=== PATIENT | female | born 1960 | race Caucasian/White ===

== ENCOUNTER 2018-02-12 20:47 | Emergency (ER) | payer MEDICARE ==
[~2018-02-12] VITALS: Ht 170.2 cm; Wt 137.4 kg
[~2018-02-12 20:47] MED LIST: ACET325 PO; ALBU90OI INH; ASPI81CH PO; ATOR20 PO; C-10001000 M1 PO; CALCIUM CARBONATE PO; CEFD300 PO; CHOL10002; DIVA500ER PO; Esgic Tablet1 EACH PO; HYDR1TAB94 PO; METF500C PO; NITR.4SL SL; ONDA4 PO; OXYB5ER PO; OYSTER SHELL C1 EAC3 PO; PRAZ2 PO; Pyridium200 MG PO; ROXICODONE5 MG PO; SERT100 PO; Synthroid125 MCG; TAMS.4ER PO
[2018-02-12 21:34] LABS: BASOPHILS ABSOLUTE AUTO 0.06 K/mm3 (0.00-0.23); BASOPHILS PERCENT AUTO 1 % (0-2); EOSINOPHILS ABSOLUTE AUTO 0.16 K/mm3 (0.00-0.68); EOSINOPHILS PERCENT AUTO 2 % (0-6); Hematocrit 38.3 % (33.0-51.0); Hemoglobin 12.9 g/dL (11.5-16.0); IMMATURE GRAN ABSOLUTE AUTO 0.02 K/mm3 (0.00-0.10); IMMATURE GRAN PERCENT AUTO 0 % (0-1); LYMPHOCYTES ABSOLUTE AUTO 3.16 K/mm3 (0.84-5.20); LYMPHOCYTES PERCENT AUTO 35 % (21-46); MONOCYTES ABSOLUTE AUTO 0.61 K/mm3 (0.16-1.47); MONOCYTES PERCENT AUTO 7 % (4-13); Mean Corpuscular HGB 31.9 pg (26.0-34.0); Mean Corpuscular HGB Conc 33.7 g/dL (31.5-36.5); Mean Corpuscular Volume 95 fL (80-100); Mean Platelet Volume 9.9 fL (9.1-12.4); NEUTROPHILS ABSOLUTE AUTO 5.07 K/mm3 (1.96-9.15); NEUTROPHILS PERCENT AUTO 56 % (41-73); Platelet Count 238 K/mm3 (150-400); RDW Coefficient Variation 13.2 % (11.7-14.2); RDW Standard Deviation 45.5 fL (35.1-46.3); Red Blood Cell Count 4.04 M/mm3 (3.80-5.20); White Blood Cell Count 9.08 K/mm3 (4.00-11.30)
[2018-02-12 21:54] LABS: Alanine Aminotransfer (ALT/SGP 21 U/L (12-78); Albumin, Blood 3.4 g/dL (3.4-5.0); Albumin/Globulin Ratio 0.8 (0.8-1.8); Alk Phos 97 U/L (50-136); Anion Gap 7 mmol/L (6-16); Aspartate Aminotrans (AST/SGOT 13 U/L (12-37); Bilirubin, Total 0.3 mg/dL (0.1-1.0); Blood Urea Nitrogen 18 mg/dL (8-24); Bun/Creatinine Ratio 26.8 (12.0-20.0); CO2, Blood 29 mmol/L (21-32); Calcium, Blood 9.1 mg/dL (8.5-10.1); Chloride, Blood 103 mmol/L (98-108); Creatinine, Blood 0.67 mg/dL (0.40-1.00); Globulin, Blood 4.1 g/dL (2.2-4.0); Glomerular Filtration Rate >60 (60-); Glucose, Blood 104 mg/dL (70-99); Potassium, Blood 3.8 mmol/L (3.5-5.5); Sodium, Blood 139 mmol/L (136-145); Total Protein, Blood 7.5 g/dL (6.4-8.2); Troponin I <0.015 ng/mL (0.000-0.040)
== END 2018-02-13 00:29 | disposition home or self-care (01) ==
LOC: ER 20:47
PROVIDERS: Emergency Medicine
DX: R07.9 Chest pain, unspecified (principal); I11.0 Hypertensive heart disease with heart failure; I50.9 Heart failure, unspecified; E78.5 Hyperlipidemia, unspecified; I25.2 Old myocardial infarction; F31.9 Bipolar disorder, unspecified; E11.9 Type 2 diabetes mellitus without complications; E03.9 Hypothyroidism, unspecified; Z91.048 Other nonmedicinal substance allergy status; Z88.8 Allergy status to other drugs, medicaments and biological substances; Z88.1 Allergy status to other antibiotic agents; Z79.899 Other long term (current) drug therapy; Z79.82 Long term (current) use of aspirin; Z79.84 Long term (current) use of oral hypoglycemic drugs; Z87.891 Personal history of nicotine dependence
CPT/HCPCS: 36415; 71046; 80053; 84484; 85025; 93005; 93010; 99285-25

== ENCOUNTER 2018-02-15 18:34 | Emergency (ER) | payer MEDICARE ==
[~2018-02-15] VITALS: Ht 170.2 cm; Wt 137.4 kg
[2018-02-15] MEDS ORDERED: Roxicodone5 MG PO (18:58)
== END 2018-02-15 19:02 | disposition home or self-care (01) ==
LOC: ER 18:34
DX: M25.561 Pain in right knee (principal); I11.0 Hypertensive heart disease with heart failure; I50.9 Heart failure, unspecified; E78.5 Hyperlipidemia, unspecified; E03.9 Hypothyroidism, unspecified; F31.9 Bipolar disorder, unspecified; E11.9 Type 2 diabetes mellitus without complications; Z91.048 Other nonmedicinal substance allergy status; Z88.0 Allergy status to penicillin; Z88.8 Allergy status to other drugs, medicaments and biological substances; Z79.899 Other long term (current) drug therapy; Z79.82 Long term (current) use of aspirin; Z79.84 Long term (current) use of oral hypoglycemic drugs; Z87.891 Personal history of nicotine dependence
CPT/HCPCS: 99282

== ENCOUNTER 2018-02-27 13:24 | Emergency (ER) | payer MEDICARE ==
[~2018-02-27] VITALS: Ht 170.2 cm; Wt 136.1 kg
[~2018-02-27 13:24] MED LIST changes: +Roxicodone5 MG PO
== END 2018-02-27 16:55 | disposition home or self-care (01) ==
LOC: ER 13:24
DX: R51 Headache (principal); I25.2 Old myocardial infarction; E78.5 Hyperlipidemia, unspecified; E11.9 Type 2 diabetes mellitus without complications; E03.9 Hypothyroidism, unspecified; I10 Essential (primary) hypertension; F31.9 Bipolar disorder, unspecified; G43.909 Migraine, unspecified, not intractable, without status migrainosus; Z91.048 Other nonmedicinal substance allergy status; Z88.0 Allergy status to penicillin; Z88.8 Allergy status to other drugs, medicaments and biological substances; Z79.899 Other long term (current) drug therapy; Z79.82 Long term (current) use of aspirin; Z79.84 Long term (current) use of oral hypoglycemic drugs; Z87.891 Personal history of nicotine dependence
CPT/HCPCS: 96361; 96374; 96375; 99283-25; J1200; J1885; J2765; J7120

== ENCOUNTER 2018-03-03 21:10 | Emergency (ER) | payer MEDICARE ==
[~2018-03-03] VITALS: Ht 170.2 cm; Wt 137.4 kg
== END 2018-03-03 22:03 | disposition home or self-care (01) ==
LOC: ER 21:10
DX: G43.909 Migraine, unspecified, not intractable, without status migrainosus (principal); Z88.0 Allergy status to penicillin; Z88.8 Allergy status to other drugs, medicaments and biological substances; Z91.048 Other nonmedicinal substance allergy status; Z79.899 Other long term (current) drug therapy; Z79.82 Long term (current) use of aspirin; Z79.84 Long term (current) use of oral hypoglycemic drugs; I25.2 Old myocardial infarction; E78.5 Hyperlipidemia, unspecified; E11.9 Type 2 diabetes mellitus without complications; E03.9 Hypothyroidism, unspecified; I10 Essential (primary) hypertension; F31.9 Bipolar disorder, unspecified; Z87.891 Personal history of nicotine dependence
CPT/HCPCS: 96372; 99283-25; J1200; J1885; J2765

== ENCOUNTER 2018-03-06 14:53 | Emergency (ER) | payer MEDICARE ==
[~2018-03-06] VITALS: Ht 170.2 cm; Wt 137.4 kg
== END 2018-03-06 17:36 | disposition home or self-care (01) ==
LOC: ER 14:53
DX: G43.909 Migraine, unspecified, not intractable, without status migrainosus (principal); Z91.048 Other nonmedicinal substance allergy status; Z88.0 Allergy status to penicillin; Z88.8 Allergy status to other drugs, medicaments and biological substances; Z79.899 Other long term (current) drug therapy; Z79.82 Long term (current) use of aspirin; Z79.4 Long term (current) use of insulin; E78.5 Hyperlipidemia, unspecified; I25.2 Old myocardial infarction; E11.9 Type 2 diabetes mellitus without complications; F31.9 Bipolar disorder, unspecified; Z87.891 Personal history of nicotine dependence
CPT/HCPCS: 99283; Q0163

== ENCOUNTER 2018-03-09 21:15 | Emergency (ER) | payer MEDICARE ==
[~2018-03-09] VITALS: Ht 170.2 cm; Wt 135.2 kg
[2018-03-11] MEDS ORDERED: Esgic Tablet1 EACH PO (18:01)
== END 2018-03-10 01:36 | disposition home or self-care (01) ==
LOC: ER 21:15
DX: G43.909 Migraine, unspecified, not intractable, without status migrainosus (principal); Z91.048 Other nonmedicinal substance allergy status; Z88.0 Allergy status to penicillin; Z88.8 Allergy status to other drugs, medicaments and biological substances; Z79.899 Other long term (current) drug therapy; Z79.82 Long term (current) use of aspirin; I25.2 Old myocardial infarction; E78.5 Hyperlipidemia, unspecified; E11.9 Type 2 diabetes mellitus without complications; E03.9 Hypothyroidism, unspecified; I10 Essential (primary) hypertension; F31.9 Bipolar disorder, unspecified; Z87.891 Personal history of nicotine dependence
CPT/HCPCS: 96361; 96374; 96375; 99283-25; J1200; J1885; J2765; J7030

== ENCOUNTER 2018-03-11 16:20 | Emergency (ER) | payer MEDICARE ==
[~2018-03-11] VITALS: Ht 170.2 cm; Wt 134.7 kg
[2018-03-11] MEDS ORDERED: Esgic Tablet1 EACH PO (18:01)
== END 2018-03-11 18:09 | disposition home or self-care (01) ==
LOC: ER 16:20
DX: G43.909 Migraine, unspecified, not intractable, without status migrainosus (principal); Z91.048 Other nonmedicinal substance allergy status; Z88.0 Allergy status to penicillin; Z88.8 Allergy status to other drugs, medicaments and biological substances; Z79.899 Other long term (current) drug therapy; Z79.82 Long term (current) use of aspirin; Z79.84 Long term (current) use of oral hypoglycemic drugs; I25.2 Old myocardial infarction; E78.5 Hyperlipidemia, unspecified; E11.9 Type 2 diabetes mellitus without complications; E03.9 Hypothyroidism, unspecified; I10 Essential (primary) hypertension; F31.9 Bipolar disorder, unspecified; Z87.891 Personal history of nicotine dependence
CPT/HCPCS: 70450; 96361; 96374; 96375; 99283-25; J0780; J1200; J1885; J2405; J7030

== ENCOUNTER 2018-03-13 21:16 | Emergency (ER) | payer MEDICARE ==
[~2018-03-13] VITALS: Ht 170.2 cm; Wt 134.7 kg
[2018-03-13 21:59] LABS: BASOPHILS ABSOLUTE AUTO 0.04 K/mm3 (0.00-0.23); BASOPHILS PERCENT AUTO 1 % (0-2); EOSINOPHILS ABSOLUTE AUTO 0.06 K/mm3 (0.00-0.68); EOSINOPHILS PERCENT AUTO 1 % (0-6); Hematocrit 37.4 % (33.0-51.0); Hemoglobin 12.5 g/dL (11.5-16.0); IMMATURE GRAN ABSOLUTE AUTO 0.04 K/mm3 (0.00-0.10); IMMATURE GRAN PERCENT AUTO 1 % (0-1); LYMPHOCYTES ABSOLUTE AUTO 2.85 K/mm3 (0.84-5.20); LYMPHOCYTES PERCENT AUTO 32 % (21-46); MONOCYTES ABSOLUTE AUTO 0.48 K/mm3 (0.16-1.47); MONOCYTES PERCENT AUTO 5 % (4-13); Mean Corpuscular HGB 31.8 pg (26.0-34.0); Mean Corpuscular HGB Conc 33.4 g/dL (31.5-36.5); Mean Corpuscular Volume 95 fL (80-100); Mean Platelet Volume 9.6 fL (9.1-12.4); NEUTROPHILS ABSOLUTE AUTO 5.39 K/mm3 (1.96-9.15); NEUTROPHILS PERCENT AUTO 61 % (41-73); Platelet Count 236 K/mm3 (150-400); RDW Coefficient Variation 13.1 % (11.7-14.2); RDW Standard Deviation 46.2 fL (35.1-46.3); Red Blood Cell Count 3.93 M/mm3 (3.80-5.20); White Blood Cell Count 8.86 K/mm3 (4.00-11.30)
[2018-03-13 22:19] LABS: Alanine Aminotransfer (ALT/SGP 20 U/L (12-78); Albumin, Blood 3.1 g/dL (3.4-5.0); Albumin/Globulin Ratio 0.8 (0.8-1.8); Alk Phos 85 U/L (50-136); Anion Gap 10 mmol/L (6-16); Aspartate Aminotrans (AST/SGOT 11 U/L (12-37); Bilirubin, Total 0.3 mg/dL (0.1-1.0); Blood Urea Nitrogen 23 mg/dL (8-24); Bun/Creatinine Ratio 36.8 (12.0-20.0); CO2, Blood 26 mmol/L (21-32); Calcium, Blood 8.6 mg/dL (8.5-10.1); Chloride, Blood 104 mmol/L (98-108); Creatinine, Blood 0.63 mg/dL (0.40-1.00); Globulin, Blood 3.8 g/dL (2.2-4.0); Glomerular Filtration Rate >60 (60-); Glucose, Blood 140 mg/dL (70-99); Potassium, Blood 3.6 mmol/L (3.5-5.5); Sodium, Blood 140 mmol/L (136-145); Total Protein, Blood 6.9 g/dL (6.4-8.2); Troponin I <0.015 ng/mL (0.000-0.040)
[2018-03-13 22:26] LABS: Source, Urine Clean Catch
[2018-03-13 22:30] LABS: Bilirubin, Urine Neg (Neg); Blood, Urine 2+ (Neg); Glucose Qualitative, Urine Neg (Neg); Ketones, Urine 1+ (Neg); Leukocyte Esterase, Urine 1+ (Neg); Nitrite, Urine Neg (Neg); Protein, Urine 1+ (Neg); Specific Gravity, Urine 1.025 (1.003-1.022); Urobilinogen, Urine 1+ (Normal)
[2018-03-13 22:36] LABS: Appearance, Urine Hazy (Clear); Bacteria Many /hpf; Color, Urine Yellow (P-Yellow); Red Blood Cells, Urine 0-2 /hpf (0-2); Squamous Epithelial Cells Many /hpf (Few)
[2018-03-13 22:37] LABS: Calcium Oxalate Crystals Mod /hpf
[2018-03-13] MEDS ORDERED: Zofran4 MG PO (22:54)
== END 2018-03-13 23:50 | disposition home or self-care (01) ==
LOC: ER 21:16
PROVIDERS: Emergency Medicine
DX: R06.02 Shortness of breath (principal); R11.2 Nausea with vomiting, unspecified; R10.9 Unspecified abdominal pain; T44.6X5A Adverse effect of alpha-adrenoreceptor antagonists, initial encounter; Z91.048 Other nonmedicinal substance allergy status; Z88.0 Allergy status to penicillin; Z88.8 Allergy status to other drugs, medicaments and biological substances; Z79.899 Other long term (current) drug therapy; Z79.82 Long term (current) use of aspirin; Z79.84 Long term (current) use of oral hypoglycemic drugs; I25.2 Old myocardial infarction; E78.5 Hyperlipidemia, unspecified; E11.9 Type 2 diabetes mellitus without complications; E03.9 Hypothyroidism, unspecified; I10 Essential (primary) hypertension; F31.9 Bipolar disorder, unspecified; G43.909 Migraine, unspecified, not intractable, without status migrainosus; Z87.891 Personal history of nicotine dependence
CPT/HCPCS: 80053; 81001; 83690; 84484; 85025; 87077; 87086; 87186; 93005; 93010; 96360; 99284-25; J7030

== ENCOUNTER 2018-03-17 18:46 | Emergency (ER) | payer MEDICARE, OTHER ==
[~2018-03-17] VITALS: Ht 170.2 cm; Wt 179.6 kg
[~2018-03-17 18:46] MED LIST changes: +Zofran4 MG PO
[2018-03-17 19:15] LABS: BASOPHILS ABSOLUTE AUTO 0.06 K/mm3 (0.00-0.23); BASOPHILS PERCENT AUTO 1 % (0-2); EOSINOPHILS ABSOLUTE AUTO 0.08 K/mm3 (0.00-0.68); EOSINOPHILS PERCENT AUTO 1 % (0-6); Hematocrit 43.2 % (33.0-51.0); Hemoglobin 14.3 g/dL (11.5-16.0); IMMATURE GRAN ABSOLUTE AUTO 0.04 K/mm3 (0.00-0.10); IMMATURE GRAN PERCENT AUTO 0 % (0-1); LYMPHOCYTES ABSOLUTE AUTO 3.22 K/mm3 (0.84-5.20); LYMPHOCYTES PERCENT AUTO 29 % (21-46); MONOCYTES PERCENT AUTO 6 % (4-13); Mean Corpuscular HGB 31.4 pg (26.0-34.0); Mean Corpuscular HGB Conc 33.1 g/dL (31.5-36.5); Mean Corpuscular Volume 95 fL (80-100); Mean Platelet Volume 9.8 fL (9.1-12.4); NEUTROPHILS ABSOLUTE AUTO 7.21 K/mm3 (1.96-9.15); NEUTROPHILS PERCENT AUTO 64 % (41-73); Platelet Count 251 K/mm3 (150-400); RDW Coefficient Variation 13.2 % (11.7-14.2); RDW Standard Deviation 45.8 fL (35.1-46.3); Red Blood Cell Count 4.56 M/mm3 (3.80-5.20); White Blood Cell Count 11.31 K/mm3 (4.00-11.30)
[2018-03-17 19:33] LABS: Alanine Aminotransfer (ALT/SGP 19 U/L (12-78); Albumin, Blood 3.4 g/dL (3.4-5.0); Albumin/Globulin Ratio 0.8 (0.8-1.8); Alk Phos 106 U/L (50-136); Anion Gap 6 mmol/L (6-16); Aspartate Aminotrans (AST/SGOT 8 U/L (12-37); Bilirubin, Total 0.5 mg/dL (0.1-1.0); Blood Urea Nitrogen 21 mg/dL (8-24); Bun/Creatinine Ratio 27.1 (12.0-20.0); CO2, Blood 28 mmol/L (21-32); Calcium, Blood 8.8 mg/dL (8.5-10.1); Chloride, Blood 105 mmol/L (98-108); Creatinine, Blood 0.78 mg/dL (0.40-1.00); Globulin, Blood 4.5 g/dL (2.2-4.0); Glomerular Filtration Rate >60 (60-); Glucose, Blood 90 mg/dL (70-99); Potassium, Blood 3.8 mmol/L (3.5-5.5); Sodium, Blood 139 mmol/L (136-145); Total Protein, Blood 7.9 g/dL (6.4-8.2)
[2018-03-17] MEDS ORDERED: OXYC5 PO (21:11)
[2018-03-17 21:18] LABS: Source, Urine Clean Catch
[2018-03-17 21:21] LABS: Bilirubin, Urine Neg (Neg); Blood, Urine 2+ (Neg); Glucose Qualitative, Urine Neg (Neg); Ketones, Urine Neg (Neg); Leukocyte Esterase, Urine 1+ (Neg); Nitrite, Urine Neg (Neg); Protein, Urine Neg (Neg); Specific Gravity, Urine 1.025 (1.003-1.022); Urobilinogen, Urine 1+ (Normal)
[2018-03-17 21:30] LABS: Appearance, Urine Hazy (Clear); Color, Urine Yellow (P-Yellow)
[2018-03-17 21:31] LABS: Bacteria Few /hpf; Red Blood Cells, Urine 0-2 /hpf (0-2); Squamous Epithelial Cells Many /hpf (Few)
== END 2018-03-17 22:24 | disposition home or self-care (01) ==
LOC: ER 18:46
PROVIDERS: Emergency Medicine
DX: R53.1 Weakness (principal); Z91.048 Other nonmedicinal substance allergy status; Z88.0 Allergy status to penicillin; Z88.8 Allergy status to other drugs, medicaments and biological substances; Z79.899 Other long term (current) drug therapy; Z79.82 Long term (current) use of aspirin; Z79.84 Long term (current) use of oral hypoglycemic drugs; E78.5 Hyperlipidemia, unspecified; E11.9 Type 2 diabetes mellitus without complications; E03.9 Hypothyroidism, unspecified; I10 Essential (primary) hypertension; F31.9 Bipolar disorder, unspecified; Z87.891 Personal history of nicotine dependence
CPT/HCPCS: 36415; 80053; 81001; 84484; 85025; 87077; 87086; 87186; 93005; 93010; 96360; 99283-25; J7030

== ENCOUNTER 2018-03-21 21:42 | Emergency (ER) | payer MEDICARE, OTHER ==
[~2018-03-21] VITALS: Ht 170.2 cm; Wt 134.3 kg
[~2018-03-21 21:42] MED LIST changes: +OXYC5 PO
== END 2018-03-22 01:04 | disposition home or self-care (01) ==
LOC: ER 21:42
DX: G43.109 Migraine with aura, not intractable, without status migrainosus (principal); I25.2 Old myocardial infarction; E78.5 Hyperlipidemia, unspecified; E11.9 Type 2 diabetes mellitus without complications; E03.9 Hypothyroidism, unspecified; I10 Essential (primary) hypertension; F31.9 Bipolar disorder, unspecified; Z87.891 Personal history of nicotine dependence; Z79.899 Other long term (current) drug therapy; Z79.84 Long term (current) use of oral hypoglycemic drugs; Z79.82 Long term (current) use of aspirin
CPT/HCPCS: 99284-25; J0780; J1200; J1885; J7030

== ENCOUNTER 2018-03-28 20:41 | Emergency (ER) | payer MEDICARE ==
[~2018-03-28] VITALS: Ht 170.2 cm; Wt 133.8 kg
== END 2018-03-28 22:10 | disposition home or self-care (01) ==
LOC: ER 20:41
DX: G43.109 Migraine with aura, not intractable, without status migrainosus (principal); I10 Essential (primary) hypertension; E11.9 Type 2 diabetes mellitus without complications; E03.9 Hypothyroidism, unspecified; I25.2 Old myocardial infarction; E78.5 Hyperlipidemia, unspecified; F31.9 Bipolar disorder, unspecified; Z91.048 Other nonmedicinal substance allergy status; Z88.1 Allergy status to other antibiotic agents; Z88.8 Allergy status to other drugs, medicaments and biological substances; Z79.899 Other long term (current) drug therapy; Z79.82 Long term (current) use of aspirin; Z79.84 Long term (current) use of oral hypoglycemic drugs; Z87.442 Personal history of urinary calculi; Z87.891 Personal history of nicotine dependence
CPT/HCPCS: 96374; 96375; 99283-25; J0780; J1200; J7030

== ENCOUNTER 2018-04-01 19:42 | Emergency (ER) | payer MEDICARE ==
[~2018-04-01] VITALS: Ht 170.2 cm; Wt 136.5 kg
== END 2018-04-01 21:00 | disposition home or self-care (01) ==
LOC: ER 19:42
DX: M79.662 Pain in left lower leg (principal); Z91.048 Other nonmedicinal substance allergy status; Z88.0 Allergy status to penicillin; Z79.899 Other long term (current) drug therapy; Z79.82 Long term (current) use of aspirin; I25.2 Old myocardial infarction; E78.5 Hyperlipidemia, unspecified; E11.9 Type 2 diabetes mellitus without complications; E03.9 Hypothyroidism, unspecified; I10 Essential (primary) hypertension; F31.9 Bipolar disorder, unspecified; Z87.891 Personal history of nicotine dependence
CPT/HCPCS: 93971; 99283-25

== ENCOUNTER 2018-04-09 22:06 | Emergency (ER) | payer MEDICARE, OTHER ==
[~2018-04-09] VITALS: Ht 170.2 cm; Wt 136.5 kg
== END 2018-04-10 01:00 | disposition home or self-care (01) ==
LOC: ER 22:06
DX: G43.909 Migraine, unspecified, not intractable, without status migrainosus (principal); Z91.048 Other nonmedicinal substance allergy status; Z88.0 Allergy status to penicillin; Z79.899 Other long term (current) drug therapy; Z88.8 Allergy status to other drugs, medicaments and biological substances; Z79.82 Long term (current) use of aspirin; Z79.84 Long term (current) use of oral hypoglycemic drugs; I25.2 Old myocardial infarction; E78.5 Hyperlipidemia, unspecified; E11.9 Type 2 diabetes mellitus without complications; E03.9 Hypothyroidism, unspecified; I10 Essential (primary) hypertension; F31.9 Bipolar disorder, unspecified; Z87.891 Personal history of nicotine dependence
CPT/HCPCS: 96372; 99283-25; J0780; J1100; Q0163

== ENCOUNTER 2018-04-14 21:26 | Emergency (ER) | payer MEDICARE, OTHER ==
[~2018-04-14] VITALS: Ht 170.2 cm; Wt 137.4 kg
[2018-04-14] MEDS ORDERED: ASPI325 PO (21:53)
== END 2018-04-14 23:08 | disposition home or self-care (01) ==
LOC: ER 21:26
DX: G43.909 Migraine, unspecified, not intractable, without status migrainosus (principal); Z91.048 Other nonmedicinal substance allergy status; Z88.0 Allergy status to penicillin; Z88.8 Allergy status to other drugs, medicaments and biological substances; Z79.899 Other long term (current) drug therapy; Z79.84 Long term (current) use of oral hypoglycemic drugs; Z79.82 Long term (current) use of aspirin; E78.5 Hyperlipidemia, unspecified; E11.9 Type 2 diabetes mellitus without complications; E03.9 Hypothyroidism, unspecified; I10 Essential (primary) hypertension; F31.9 Bipolar disorder, unspecified; Z87.891 Personal history of nicotine dependence; I25.2 Old myocardial infarction
CPT/HCPCS: 96374; 96375; 99283-25; J1200; J1885; J2765

== ENCOUNTER 2018-06-23 12:48 | Emergency (ER) | payer MEDICARE ==
[~2018-06-23] VITALS: Ht 170.2 cm; Wt 138.3 kg
[~2018-06-23 12:48] MED LIST changes: +ASPI325 PO
[2018-06-23] MEDS ORDERED: Vibramycin100 MG PO (13:23)
== END 2018-06-23 13:29 | disposition home or self-care (01) ==
LOC: ER 12:48
DX: L73.9 Follicular disorder, unspecified (principal); I25.2 Old myocardial infarction; E11.9 Type 2 diabetes mellitus without complications; E03.9 Hypothyroidism, unspecified; E78.5 Hyperlipidemia, unspecified; F31.9 Bipolar disorder, unspecified; G43.909 Migraine, unspecified, not intractable, without status migrainosus; Z88.1 Allergy status to other antibiotic agents; Z88.8 Allergy status to other drugs, medicaments and biological substances; Z79.82 Long term (current) use of aspirin; Z79.84 Long term (current) use of oral hypoglycemic drugs; Z79.899 Other long term (current) drug therapy; Z87.442 Personal history of urinary calculi; Z87.891 Personal history of nicotine dependence
CPT/HCPCS: 99282

== ENCOUNTER 2018-07-22 22:20 | Emergency (ER) | payer MEDICARE ==
[~2018-07-22] VITALS: Ht 170.2 cm; Wt 138.3 kg
[~2018-07-22 22:20] MED LIST changes: +Vibramycin100 MG PO
[2018-07-22 23:15] LABS: BASOPHILS ABSOLUTE AUTO 0.06 K/mm3 (0.00-0.23); BASOPHILS PERCENT AUTO 1 % (0-2); EOSINOPHILS ABSOLUTE AUTO 0.12 K/mm3 (0.00-0.68); EOSINOPHILS PERCENT AUTO 1 % (0-6); Hematocrit 39.2 % (33.0-51.0); Hemoglobin 13.2 g/dL (11.5-16.0); IMMATURE GRAN ABSOLUTE AUTO 0.02 K/mm3 (0.00-0.10); IMMATURE GRAN PERCENT AUTO 0 % (0-1); LYMPHOCYTES ABSOLUTE AUTO 3.35 K/mm3 (0.84-5.20); LYMPHOCYTES PERCENT AUTO 37 % (21-46); MONOCYTES ABSOLUTE AUTO 0.66 K/mm3 (0.16-1.47); MONOCYTES PERCENT AUTO 7 % (4-13); Mean Corpuscular HGB 31.9 pg (26.0-34.0); Mean Corpuscular HGB Conc 33.7 g/dL (31.5-36.5); Mean Corpuscular Volume 95 fL (80-100); Mean Platelet Volume 9.8 fL (9.1-12.4); NEUTROPHILS ABSOLUTE AUTO 4.95 K/mm3 (1.96-9.15); NEUTROPHILS PERCENT AUTO 54 % (41-73); Platelet Count 242 K/mm3 (150-400); RDW Coefficient Variation 12.5 % (11.7-14.2); RDW Standard Deviation 43.3 fL (35.1-46.3); Red Blood Cell Count 4.14 M/mm3 (3.80-5.20); White Blood Cell Count 9.16 K/mm3 (4.00-11.30)
[2018-07-22 23:34] LABS: Alanine Aminotransfer (ALT/SGP 26 U/L (12-78); Albumin, Blood 3.3 g/dL (3.4-5.0); Albumin/Globulin Ratio 0.8 (0.8-1.8); Alk Phos 99 U/L (50-136); Anion Gap 6 mmol/L (6-16); Aspartate Aminotrans (AST/SGOT 11 U/L (12-37); Bilirubin, Total 0.4 mg/dL (0.1-1.0); Blood Urea Nitrogen 14 mg/dL (8-24); CO2, Blood 27 mmol/L (21-32); Calcium, Blood 8.9 mg/dL (8.5-10.1); Chloride, Blood 108 mmol/L (98-108); Globulin, Blood 3.9 g/dL (2.2-4.0); Glomerular Filtration Rate >60 (60-); Glucose, Blood 104 mg/dL (70-99); Potassium, Blood 3.6 mmol/L (3.5-5.5); Sodium, Blood 141 mmol/L (136-145); Total Protein, Blood 7.2 g/dL (6.4-8.2); Troponin I <0.015 ng/mL (0.000-0.040)
[2018-07-24] MEDS ORDERED: Norco 5-325 Ta1 EACH PO (13:07)
== END 2018-07-23 01:51 | disposition home or self-care (01) ==
LOC: ER 22:20
PROVIDERS: Physician Assistant
DX: R07.2 Precordial pain (principal); R06.00 Dyspnea, unspecified; R42 Dizziness and giddiness; Z91.048 Other nonmedicinal substance allergy status; Z88.0 Allergy status to penicillin; Z88.8 Allergy status to other drugs, medicaments and biological substances; Z79.899 Other long term (current) drug therapy; Z79.84 Long term (current) use of oral hypoglycemic drugs; Z79.82 Long term (current) use of aspirin; E78.5 Hyperlipidemia, unspecified; I25.2 Old myocardial infarction; E11.9 Type 2 diabetes mellitus without complications; E03.9 Hypothyroidism, unspecified; F31.9 Bipolar disorder, unspecified; Z87.891 Personal history of nicotine dependence
CPT/HCPCS: 36415; 71046; 80053; 84484; 85025; 93005; 93010; 99285-25

== ENCOUNTER 2018-07-24 11:11 | Emergency (ER) | payer MEDICARE ==
[~2018-07-24] VITALS: Ht 170.2 cm; Wt 138.3 kg
[2018-07-24] MEDS ORDERED: Norco 5-325 Ta1 EACH PO (13:07)
== END 2018-07-24 13:14 | disposition home or self-care (01) ==
LOC: ER 11:11
DX: S89.91XA Unspecified injury of right lower leg, initial encounter (principal); W18.30XA Fall on same level, unspecified, initial encounter; Z91.048 Other nonmedicinal substance allergy status; Z88.0 Allergy status to penicillin; Z88.8 Allergy status to other drugs, medicaments and biological substances; Z79.899 Other long term (current) drug therapy; Z79.84 Long term (current) use of oral hypoglycemic drugs; Z79.82 Long term (current) use of aspirin; I25.10 Atherosclerotic heart disease of native coronary artery without angina pectoris; E78.5 Hyperlipidemia, unspecified; E11.9 Type 2 diabetes mellitus without complications; E03.9 Hypothyroidism, unspecified; F31.9 Bipolar disorder, unspecified; G43.909 Migraine, unspecified, not intractable, without status migrainosus; I10 Essential (primary) hypertension; Z87.891 Personal history of nicotine dependence
CPT/HCPCS: 29505; 73562-RT; 99283-25

== ENCOUNTER 2018-07-29 20:31 | Emergency (ER) | payer MEDICARE ==
[~2018-07-29] VITALS: Ht 170.2 cm; Wt 138.3 kg
[~2018-07-29 20:31] MED LIST changes: +Norco 5-325 Ta1 EACH PO
== END 2018-07-29 23:40 | disposition home or self-care (01) ==
LOC: ER 20:31
DX: G43.909 Migraine, unspecified, not intractable, without status migrainosus (principal); I25.2 Old myocardial infarction; E78.5 Hyperlipidemia, unspecified; E11.9 Type 2 diabetes mellitus without complications; E03.9 Hypothyroidism, unspecified; I10 Essential (primary) hypertension; F31.9 Bipolar disorder, unspecified; Z87.442 Personal history of urinary calculi; Z87.891 Personal history of nicotine dependence; Z91.09 Other allergy status, other than to drugs and biological substances; Z88.0 Allergy status to penicillin; Z88.8 Allergy status to other drugs, medicaments and biological substances; Z79.899 Other long term (current) drug therapy; Z79.82 Long term (current) use of aspirin; Z79.84 Long term (current) use of oral hypoglycemic drugs
CPT/HCPCS: 96361; 96374; 96375; 99283-25; J0780; J1100; J1200; J1885; J7030

== ENCOUNTER 2018-08-07 22:33 | Emergency (ER) | payer MEDICARE ==
[~2018-08-07] VITALS: Ht 170.2 cm; Wt 140.6 kg
[2018-08-08 00:21] LABS: Source, Urine Clean Catch
[2018-08-08 00:24] LABS: BASOPHILS ABSOLUTE AUTO 0.06 K/mm3 (0.00-0.23); BASOPHILS PERCENT AUTO 1 % (0-2); EOSINOPHILS ABSOLUTE AUTO 0.17 K/mm3 (0.00-0.68); EOSINOPHILS PERCENT AUTO 2 % (0-6); Hematocrit 41.1 % (33.0-51.0); Hemoglobin 13.2 g/dL (11.5-16.0); IMMATURE GRAN ABSOLUTE AUTO 0.07 K/mm3 (0.00-0.10); IMMATURE GRAN PERCENT AUTO 1 % (0-1); LYMPHOCYTES ABSOLUTE AUTO 2.61 K/mm3 (0.84-5.20); LYMPHOCYTES PERCENT AUTO 31 % (21-46); MONOCYTES ABSOLUTE AUTO 0.74 K/mm3 (0.16-1.47); MONOCYTES PERCENT AUTO 9 % (4-13); Mean Corpuscular HGB 31.9 pg (26.0-34.0); Mean Corpuscular HGB Conc 32.1 g/dL (31.5-36.5); Mean Corpuscular Volume 99 fL (80-100); Mean Platelet Volume 10.3 fL (9.1-12.4); NEUTROPHILS ABSOLUTE AUTO 4.66 K/mm3 (1.96-9.15); NEUTROPHILS PERCENT AUTO 56 % (41-73); Platelet Count 253 K/mm3 (150-400); RDW Coefficient Variation 12.9 % (11.7-14.2); RDW Standard Deviation 46.4 fL (35.1-46.3); Red Blood Cell Count 4.14 M/mm3 (3.80-5.20); White Blood Cell Count 8.31 K/mm3 (4.00-11.30)
[2018-08-08 00:25] LABS: Blood, Urine 2+ (Neg); Glucose Qualitative, Urine Neg (Neg); Ketones, Urine 1+ (Neg); Leukocyte Esterase, Urine 2+ (Neg); Nitrite, Urine Pos (Neg); Protein, Urine 1+ (Neg); Specific Gravity, Urine 1.025 (1.003-1.022); Urobilinogen, Urine 2+ (Normal)
[2018-08-08 00:26] LABS: Appearance, Urine Hazy (Clear); Bilirubin, Urine 1+ (Neg); Color, Urine Yellow (P-Yellow)
[2018-08-08 00:33] LABS: Bacteria Many /hpf; Red Blood Cells, Urine 0-2 /hpf (0-2); Squamous Epithelial Cells Many /hpf (Few); White Blood Cells, Urine 50-100 /hpf (0-5)
[2018-08-08 00:42] LABS: Alanine Aminotransfer (ALT/SGP 20 U/L (12-78); Albumin, Blood 3.3 g/dL (3.4-5.0); Albumin/Globulin Ratio 0.8 (0.8-1.8); Alk Phos 92 U/L (50-136); Anion Gap 3 mmol/L (6-16); Aspartate Aminotrans (AST/SGOT 14 U/L (12-37); Bilirubin, Total 0.6 mg/dL (0.1-1.0); Blood Urea Nitrogen 19 mg/dL (8-24); Bun/Creatinine Ratio 26.9 (12.0-20.0); CO2, Blood 32 mmol/L (21-32); Calcium, Blood 8.8 mg/dL (8.5-10.1); Chloride, Blood 108 mmol/L (98-108); Creatinine, Blood 0.71 mg/dL (0.40-1.00); Globulin, Blood 3.9 g/dL (2.2-4.0); Glomerular Filtration Rate >60 (60-); Glucose, Blood 91 mg/dL (70-99); Potassium, Blood 4.1 mmol/L (3.5-5.5); Sodium, Blood 143 mmol/L (136-145); Total Protein, Blood 7.2 g/dL (6.4-8.2)
[2018-08-08 02:05] LABS: Source, Urine Clean Catch
[2018-08-08 02:10] LABS: Blood, Urine 2+ (Neg); Glucose Qualitative, Urine Neg (Neg); Ketones, Urine 1+ (Neg); Leukocyte Esterase, Urine 2+ (Neg); Nitrite, Urine Pos (Neg); Protein, Urine 1+ (Neg); Urobilinogen, Urine 1+ (Normal)
[2018-08-08 02:12] LABS: Appearance, Urine Hazy (Clear); Bilirubin, Urine 1+ (Neg); Color, Urine Amber (P-Yellow)
[2018-08-08 02:20] LABS: Bacteria Many /hpf; Red Blood Cells, Urine 0-2 /hpf (0-2); Squamous Epithelial Cells Many /hpf (Few)
[2018-08-08] MEDS ORDERED: CEFD300 PO (03:56)
== END 2018-08-08 04:40 | disposition home or self-care (01) ==
LOC: ER 22:33
PROVIDERS: Physician Assistant
DX: N12 Tubulo-interstitial nephritis, not specified as acute or chronic (principal); E11.9 Type 2 diabetes mellitus without complications; I11.0 Hypertensive heart disease with heart failure; I50.9 Heart failure, unspecified; E03.9 Hypothyroidism, unspecified; F31.9 Bipolar disorder, unspecified; E78.5 Hyperlipidemia, unspecified; G43.909 Migraine, unspecified, not intractable, without status migrainosus; Z87.891 Personal history of nicotine dependence; Z79.899 Other long term (current) drug therapy; Z79.84 Long term (current) use of oral hypoglycemic drugs; Z79.82 Long term (current) use of aspirin
CPT/HCPCS: 36415; 74176; 80053; 81001; 83690; 85025; 87077; 87086; 87186; 96361; 96365; 96375; 99284-25; J0696; J1885; J7030

== ENCOUNTER 2018-11-06 20:33 | Emergency (ER) | payer MEDICARE ==
[~2018-11-06] VITALS: Ht 170.2 cm; Wt 145.2 kg
== END 2018-11-06 21:43 | disposition home or self-care (01) ==
LOC: ER 20:33
DX: G43.909 Migraine, unspecified, not intractable, without status migrainosus (principal); I25.2 Old myocardial infarction; E78.5 Hyperlipidemia, unspecified; E03.9 Hypothyroidism, unspecified; E11.9 Type 2 diabetes mellitus without complications; I10 Essential (primary) hypertension; F31.9 Bipolar disorder, unspecified; Z87.442 Personal history of urinary calculi; Z87.891 Personal history of nicotine dependence; Z88.1 Allergy status to other antibiotic agents; Z91.048 Other nonmedicinal substance allergy status; Z79.899 Other long term (current) drug therapy; Z79.84 Long term (current) use of oral hypoglycemic drugs; Z79.82 Long term (current) use of aspirin
CPT/HCPCS: 96374; 96375; 99283-25; J0780; J1100; J1200; J1885

== ENCOUNTER 2018-11-12 21:49 | Emergency (ER) | payer MEDICARE ==
[~2018-11-12] VITALS: Ht 170.2 cm; Wt 145.2 kg
[2018-11-12] MEDS ORDERED: IBUP100S (22:19)
== END 2018-11-13 00:33 | disposition home or self-care (01) ==
LOC: ER 21:49
DX: G43.909 Migraine, unspecified, not intractable, without status migrainosus (principal); E11.9 Type 2 diabetes mellitus without complications; I10 Essential (primary) hypertension; F31.9 Bipolar disorder, unspecified; E78.5 Hyperlipidemia, unspecified; E03.9 Hypothyroidism, unspecified; I25.2 Old myocardial infarction; Z87.442 Personal history of urinary calculi; Z87.891 Personal history of nicotine dependence; Z88.1 Allergy status to other antibiotic agents; Z91.048 Other nonmedicinal substance allergy status; Z88.8 Allergy status to other drugs, medicaments and biological substances; Z79.899 Other long term (current) drug therapy; Z79.84 Long term (current) use of oral hypoglycemic drugs; Z79.82 Long term (current) use of aspirin
CPT/HCPCS: 96361; 96374; 96375; 99283-25; J0780; J1100; J1200; J1885; J7120

== ENCOUNTER 2018-11-19 20:08 | Emergency (ER) | payer MEDICARE ==
[~2018-11-19] VITALS: Ht 170.2 cm; Wt 145.2 kg
[~2018-11-19 20:08] MED LIST changes: +IBUP100S
[2018-11-19] MEDS ORDERED: IBUP800 PO (20:54)
[2018-11-19] MEDS ORDERED: Robaxin-750750 MG PO (20:54)
== END 2018-11-19 21:32 | disposition home or self-care (01) ==
LOC: ER 20:08
DX: G89.29 Other chronic pain (principal); M54.5 Low back pain; E11.9 Type 2 diabetes mellitus without complications; I10 Essential (primary) hypertension; I25.2 Old myocardial infarction; E78.5 Hyperlipidemia, unspecified; F31.9 Bipolar disorder, unspecified; Z87.442 Personal history of urinary calculi; Z87.891 Personal history of nicotine dependence; Z88.1 Allergy status to other antibiotic agents; Z91.048 Other nonmedicinal substance allergy status; Z88.8 Allergy status to other drugs, medicaments and biological substances; Z79.899 Other long term (current) drug therapy; Z79.84 Long term (current) use of oral hypoglycemic drugs; Z79.82 Long term (current) use of aspirin
CPT/HCPCS: 96372; 99283-25; J1885

== ENCOUNTER 2018-12-20 12:07 | Emergency (ER) | payer MEDICARE ==
[~2018-12-20] VITALS: Ht 170.2 cm; Wt 156.5 kg
[~2018-12-20 12:07] MED LIST changes: +IBUP800 PO; +Robaxin-750750 MG PO
[2018-12-20] MEDS ORDERED: Inderal80 MG PO (13:14)
[2018-12-20] MEDS ORDERED: Oxybutynin Chlo15 MG PO (13:16)
== END 2018-12-20 13:54 | disposition home or self-care (01) ==
LOC: ER 12:07
DX: G43.909 Migraine, unspecified, not intractable, without status migrainosus (principal); E78.5 Hyperlipidemia, unspecified; E11.9 Type 2 diabetes mellitus without complications; E03.9 Hypothyroidism, unspecified; F31.9 Bipolar disorder, unspecified; I10 Essential (primary) hypertension; I25.2 Old myocardial infarction; Z87.891 Personal history of nicotine dependence; Z91.048 Other nonmedicinal substance allergy status; Z88.0 Allergy status to penicillin; Z88.8 Allergy status to other drugs, medicaments and biological substances; Z79.51 Long term (current) use of inhaled steroids; Z79.899 Other long term (current) drug therapy; Z79.84 Long term (current) use of oral hypoglycemic drugs; Z79.82 Long term (current) use of aspirin
CPT/HCPCS: 96374; 96375; 99283-25; J0780; J1200; J1885

== ENCOUNTER 2019-01-13 22:56 | Emergency (ER) | payer MEDICARE ==
[~2019-01-13] VITALS: Ht 170.2 cm; Wt 154.2 kg
[~2019-01-13 22:56] MED LIST changes: +ASCO500 PO; -ASPI325 PO; +ASPI325EC PO; -C-10001000 M1 PO; +CYCL10 PO; +Inderal80 MG PO; +Oxybutynin Chlo15 MG PO; -Synthroid125 MCG; +Synthroid125 MCG PO; +Voltaren100 GM TOP
== END 2019-01-14 00:33 | disposition home or self-care (01) ==
LOC: ER 22:56
DX: R51 Headache (principal); I25.2 Old myocardial infarction; E11.9 Type 2 diabetes mellitus without complications; I10 Essential (primary) hypertension; E03.9 Hypothyroidism, unspecified; E78.5 Hyperlipidemia, unspecified; F31.9 Bipolar disorder, unspecified; E66.01 Morbid (severe) obesity due to excess calories; Z68.43 Body mass index [BMI] 50.0-59.9, adult; Z87.442 Personal history of urinary calculi; Z87.891 Personal history of nicotine dependence; Z91.048 Other nonmedicinal substance allergy status; Z88.1 Allergy status to other antibiotic agents; Z88.8 Allergy status to other drugs, medicaments and biological substances; Z79.899 Other long term (current) drug therapy; Z79.84 Long term (current) use of oral hypoglycemic drugs; Z79.82 Long term (current) use of aspirin
CPT/HCPCS: 96372; 99283-25; J1100; J1885; J2765; Q0163

== ENCOUNTER 2019-01-20 22:22 | Emergency (ER) | payer MEDICARE ==
[~2019-01-20] VITALS: Ht 170.2 cm; Wt 154.2 kg
[~2019-01-20 22:22] MED LIST changes: -ASCO500 PO; +ASPI325 PO; -ASPI325EC PO; +C-10001000 M1 PO; +Synthroid125 MCG; -Synthroid125 MCG PO
[2019-01-20 23:22] LABS: BASOPHILS ABSOLUTE AUTO 0.05 K/mm3 (0.00-0.23); BASOPHILS PERCENT AUTO 1 % (0-2); EOSINOPHILS ABSOLUTE AUTO 0.07 K/mm3 (0.00-0.68); EOSINOPHILS PERCENT AUTO 1 % (0-6); Hematocrit 41.8 % (33.0-51.0); Hemoglobin 13.9 g/dL (11.5-16.0); IMMATURE GRAN ABSOLUTE AUTO 0.04 K/mm3 (0.00-0.10); IMMATURE GRAN PERCENT AUTO 0 % (0-1); LYMPHOCYTES ABSOLUTE AUTO 1.73 K/mm3 (0.84-5.20); LYMPHOCYTES PERCENT AUTO 17 % (21-46); MONOCYTES ABSOLUTE AUTO 0.49 K/mm3 (0.16-1.47); MONOCYTES PERCENT AUTO 5 % (4-13); Mean Corpuscular HGB 31.7 pg (26.0-34.0); Mean Corpuscular HGB Conc 33.3 g/dL (31.5-36.5); Mean Corpuscular Volume 95 fL (80-100); Mean Platelet Volume 9.1 fL (9.1-12.4); NEUTROPHILS PERCENT AUTO 77 % (41-73); Platelet Count 247 K/mm3 (150-400); RDW Coefficient Variation 12.6 % (11.7-14.2); RDW Standard Deviation 44.2 fL (35.1-46.3); Red Blood Cell Count 4.39 M/mm3 (3.80-5.20); White Blood Cell Count 10.28 K/mm3 (4.00-11.30)
[2019-01-20 23:43] LABS: Alanine Aminotransfer (ALT/SGP 23 U/L (12-78); Albumin, Blood 3.2 g/dL (3.4-5.0); Albumin/Globulin Ratio 0.7 (0.8-1.8); Alk Phos 106 U/L (50-136); Anion Gap 6 mmol/L (6-16); Aspartate Aminotrans (AST/SGOT 13 U/L (12-37); Bilirubin, Total 0.3 mg/dL (0.1-1.0); Blood Urea Nitrogen 23 mg/dL (8-24); CO2, Blood 28 mmol/L (21-32); Calcium, Blood 9.6 mg/dL (8.5-10.1); Chloride, Blood 105 mmol/L (98-108); Creatinine, Blood 0.74 mg/dL (0.40-1.00); Globulin, Blood 4.6 g/dL (2.2-4.0); Glomerular Filtration Rate >60 (60-); Glucose, Blood 121 mg/dL (70-99); Potassium, Blood 4.2 mmol/L (3.5-5.5); Sodium, Blood 139 mmol/L (136-145); Total Protein, Blood 7.8 g/dL (6.4-8.2); Troponin I <0.015 ng/mL (0.000-0.040)
== END 2019-01-21 03:02 | disposition home or self-care (01) ==
LOC: ER 22:22
PROVIDERS: Emergency Medicine
DX: R07.9 Chest pain, unspecified (principal); I25.2 Old myocardial infarction; E11.9 Type 2 diabetes mellitus without complications; E78.5 Hyperlipidemia, unspecified; E03.9 Hypothyroidism, unspecified; I10 Essential (primary) hypertension; F31.9 Bipolar disorder, unspecified; E66.01 Morbid (severe) obesity due to excess calories; Z68.43 Body mass index [BMI] 50.0-59.9, adult; Z87.442 Personal history of urinary calculi; Z87.891 Personal history of nicotine dependence; Z91.048 Other nonmedicinal substance allergy status; Z88.1 Allergy status to other antibiotic agents; Z88.8 Allergy status to other drugs, medicaments and biological substances; Z79.899 Other long term (current) drug therapy; Z79.82 Long term (current) use of aspirin; Z79.84 Long term (current) use of oral hypoglycemic drugs
CPT/HCPCS: 36415; 71046; 80053; 83690; 83880; 84484; 85025; 93005; 93010; 99285-25

== ENCOUNTER 2019-02-06 21:02 | Emergency (ER) | payer MEDICARE ==
[~2019-02-06] VITALS: Ht 170.2 cm; Wt 156.5 kg
[~2019-02-06 21:02] MED LIST changes: +ASCO500 PO; -ASPI325 PO; +ASPI325EC PO; -C-10001000 M1 PO; -Synthroid125 MCG; +Synthroid125 MCG PO
== END 2019-02-06 22:05 | disposition home or self-care (01) ==
LOC: ER 21:02
DX: G43.909 Migraine, unspecified, not intractable, without status migrainosus (principal); I25.2 Old myocardial infarction; I10 Essential (primary) hypertension; E78.5 Hyperlipidemia, unspecified; E11.9 Type 2 diabetes mellitus without complications; Z87.891 Personal history of nicotine dependence
CPT/HCPCS: 36415; 96374; 96375; 99283-25; J0780; J1170; J1200; J1885

== ENCOUNTER 2019-02-13 20:24 | Emergency (ER) | payer MEDICARE ==
[~2019-02-13] VITALS: Ht 170.2 cm; Wt 154.2 kg
[2019-02-13] MEDS ORDERED: HYDR1TAB94 PO (23:14)
== END 2019-02-14 00:31 | disposition home or self-care (01) ==
LOC: ER 20:24
DX: M79.662 Pain in left lower leg (principal); I25.2 Old myocardial infarction; E78.5 Hyperlipidemia, unspecified; E03.9 Hypothyroidism, unspecified; I10 Essential (primary) hypertension; Z86.718 Personal history of other venous thrombosis and embolism; F31.9 Bipolar disorder, unspecified; Z87.442 Personal history of urinary calculi; Z87.891 Personal history of nicotine dependence; Z88.0 Allergy status to penicillin; Z88.2 Allergy status to sulfonamides; Z91.048 Other nonmedicinal substance allergy status; Z79.82 Long term (current) use of aspirin; Z79.51 Long term (current) use of inhaled steroids; Z79.899 Other long term (current) drug therapy
CPT/HCPCS: 93971; 99283-25; A9270

== ENCOUNTER 2019-02-16 09:43 | Day surgery (SDC) | payer MEDICARE ==
[~2019-02-16] VITALS: Ht 170.2 cm; Wt 159.0 kg
--- NOTE | 2019-02-16 10:26 | NUR ---
History, Chart, Medications and Allergies reviewed before start of procedure. Lungs clear T/O to Auscultation. Patient confirms NPO status and agrees with scheduled surgery. Pre-Op teaching done. Pt verbalizes understanding. Patient states colon prep results clear. Patient States Post-Procedure ride home has been arranged.
--- NOTE | 2019-02-16 10:28 | NUR ---
PT GAVE HER GLASSES TO HER
--- NOTE | 2019-02-16 10:38 | NUR ---
02/16/[address] HERE TO PROVIDE ANESTHESIA CARE TODAY, PLEASE SEE DETAILED RECORD. History, Chart, Medications and Allergies reviewed before start of procedure. Patient states colon prep results clear. MONITOR INTACT WITH CONTINUOUS PULSE OXIMETRY AND INTERMITTENT BP. PATIENT CONFIRMS NPO STATUS AND AGREES WITH SCHEDULED PROCEDURE. O2 VIA N/C INTACT THROUGHOUT SEDATION/PROCEDURE VIA NON-REBREATHER PER DR BALTAZAR.
--- NOTE | 2019-02-16 10:56 | NUR ---
PT AWAKE, ALERT, CONVERSING [facility] STAFF. NO C/O PAIN OR DISCOMFORT. UNABLE TO COMPLETE PROCEDURE RELATED TO STOOL IN COLON. MD TO BEDSIDE TO REVIEW NEED FOR RESCHEDULE AND DOUBLE DAY PREP.
--- NOTE | 2019-02-16 11:09 | NUR ---
REVIEWED DISCHARGE INSTRUCTIONS WITH PATIENT AND , BOTH OF WHOM VERBALIZE UNDERSTANDING OF ALL INSTRUCTIONS GIVEN. SIPPING ON PO FLUIDS WITHOUT DIFFICULTY.
--- NOTE | 2019-02-16 11:23 | NUR ---
DRESSED WITH ASSISTANCE BY THIS RN. STEADY ON FEET WHILE DRESSING. IV DC TIP INTACT. DC HOME VIA WC WITH TO DRIVE HER.
== END 2019-02-16 23:52 | disposition home or self-care (01) ==
LOC: ORSCMMR 09:43 → ORD 11:15 → ORSCMMR 11:15
PROVIDERS: Student in an Organized Health Care Education/Training Program
PROC: 0DJD8ZZ Inspection of Lower Intestinal Tract, Via Natural or Artificial Opening Endoscopic (ICD-10-PCS; principal; 2019-02-16 11:15)
DX: Z12.11 Encounter for screening for malignant neoplasm of colon (principal); F31.9 Bipolar disorder, unspecified; J44.9 Chronic obstructive pulmonary disease, unspecified; I21.9 Acute myocardial infarction, unspecified; E11.9 Type 2 diabetes mellitus without complications; E03.9 Hypothyroidism, unspecified; E66.01 Morbid (severe) obesity due to excess calories; Z68.43 Body mass index [BMI] 50.0-59.9, adult; Z79.82 Long term (current) use of aspirin; Z79.84 Long term (current) use of oral hypoglycemic drugs; Z79.899 Other long term (current) drug therapy
CPT/HCPCS: 82947; J2704; J7120

== ENCOUNTER 2019-03-13 10:46 | Day surgery (SDC) | payer MEDICARE ==
--- NOTE | 2019-03-13 11:37 | NUR ---
Patient up to Ambulate independently. Gait steady. History, Chart, Medications and Allergies reviewed before start of procedure.Lungs clear, BUT DECREASED T/O to Auscultation. Patient states colon prep results clear. Patient confirms NPO status and agrees with scheduled surgery.
--- NOTE | 2019-03-13 12:38 | NUR ---
03/13/19 1238 Abel Aguilar History, Chart, Medications and Allergies reviewed before start of procedure.MONITOR INTACT WITH CONTINUOUS PULSE OXIMETRY AND INTERMITTENT BP.3-LEAD EKG REVIEWED WITH PHYSICIAN PRIOR TO START OF PROCEDURE.O2 VIA N/C INTACT THROUGHOUT SEDATION/PROCEDURE. Patient confirms NPO status and agrees with scheduled surgery.See Anesthesia record.
== END 2019-03-13 14:16 | disposition home or self-care (01) ==
LOC: ORSCMMR 10:46 → ORD 12:30 → ORSCMMR 14:16
PROVIDERS: Student in an Organized Health Care Education/Training Program
PROC: 0DBM8ZX Excision of Descending Colon, Via Natural or Artificial Opening Endoscopic, Diagnostic (ICD-10-PCS; principal; 2019-03-13 12:30)
PROC: 0DBP8ZX Excision of Rectum, Via Natural or Artificial Opening Endoscopic, Diagnostic (ICD-10-PCS; principal; 2019-03-13 12:30)
PROC: 0DBL8ZX Excision of Transverse Colon, Via Natural or Artificial Opening Endoscopic, Diagnostic (ICD-10-PCS; principal; 2019-03-13 12:30)
PROC: 0DBK8ZX Excision of Ascending Colon, Via Natural or Artificial Opening Endoscopic, Diagnostic (ICD-10-PCS; principal; 2019-03-13 12:30)
DX: Z12.11 Encounter for screening for malignant neoplasm of colon (principal); D12.3 Benign neoplasm of transverse colon; D12.4 Benign neoplasm of descending colon; K63.5 Polyp of colon; K62.1 Rectal polyp; I25.2 Old myocardial infarction; I25.10 Atherosclerotic heart disease of native coronary artery without angina pectoris; J44.9 Chronic obstructive pulmonary disease, unspecified; G47.33 Obstructive sleep apnea (adult) (pediatric); Z87.891 Personal history of nicotine dependence; E11.9 Type 2 diabetes mellitus without complications; E66.01 Morbid (severe) obesity due to excess calories; Z68.43 Body mass index [BMI] 50.0-59.9, adult; Z79.899 Other long term (current) drug therapy; Z79.82 Long term (current) use of aspirin; F31.9 Bipolar disorder, unspecified
CPT/HCPCS: 82947; 88305; J2704; J7120

== ENCOUNTER 2019-03-13 22:01 | Emergency (ER) | payer MEDICARE ==
[~2019-03-13] VITALS: Ht 170.2 cm; Wt 154.2 kg
[2019-03-13 23:20] LABS: BASOPHILS ABSOLUTE AUTO 0.05 K/mm3 (0.00-0.23); BASOPHILS PERCENT AUTO 1 % (0-2); EOSINOPHILS ABSOLUTE AUTO 0.09 K/mm3 (0.00-0.68); EOSINOPHILS PERCENT AUTO 1 % (0-6); Hematocrit 40.2 % (33.0-51.0); Hemoglobin 13.3 g/dL (11.5-16.0); IMMATURE GRAN ABSOLUTE AUTO 0.02 K/mm3 (0.00-0.10); IMMATURE GRAN PERCENT AUTO 0 % (0-1); LYMPHOCYTES ABSOLUTE AUTO 2.19 K/mm3 (0.84-5.20); LYMPHOCYTES PERCENT AUTO 29 % (21-46); MONOCYTES ABSOLUTE AUTO 0.61 K/mm3 (0.16-1.47); MONOCYTES PERCENT AUTO 8 % (4-13); Mean Corpuscular HGB 31.7 pg (26.0-34.0); Mean Corpuscular HGB Conc 33.1 g/dL (31.5-36.5); Mean Corpuscular Volume 96 fL (80-100); Mean Platelet Volume 9.6 fL (9.1-12.4); NEUTROPHILS ABSOLUTE AUTO 4.54 K/mm3 (1.96-9.15); NEUTROPHILS PERCENT AUTO 61 % (41-73); Platelet Count 238 K/mm3 (150-400); RDW Coefficient Variation 12.8 % (11.7-14.2); Red Blood Cell Count 4.19 M/mm3 (3.80-5.20)
[2019-03-13 23:38] LABS: Alanine Aminotransfer (ALT/SGP 34 U/L (12-78); Albumin, Blood 3.2 g/dL (3.4-5.0); Albumin/Globulin Ratio 0.8 (0.8-1.8); Alk Phos 97 U/L (50-136); Anion Gap 7 mmol/L (6-16); Aspartate Aminotrans (AST/SGOT 17 U/L (12-37); Bilirubin, Total 0.7 mg/dL (0.1-1.0); Blood Urea Nitrogen 11 mg/dL (8-24); Bun/Creatinine Ratio 20.8 (12.0-20.0); CO2, Blood 26 mmol/L (21-32); Chloride, Blood 108 mmol/L (98-108); Creatinine, Blood 0.53 mg/dL (0.40-1.00); Globulin, Blood 3.9 g/dL (2.2-4.0); Glomerular Filtration Rate >60 (60-); Glucose, Blood 105 mg/dL (70-99); Potassium, Blood 3.5 mmol/L (3.5-5.5); Sodium, Blood 141 mmol/L (136-145); Total Protein, Blood 7.1 g/dL (6.4-8.2)
[2019-03-13 23:56] LABS: Source, Urine Clean Catch
[2019-03-14 00:07] LABS: Appearance, Urine Clear (Clear); Bilirubin, Urine Neg (Neg); Blood, Urine 1+ (Neg); Color, Urine Amber (P-Yellow); Glucose Qualitative, Urine Neg (Neg); Ketones, Urine Neg (Neg); Leukocyte Esterase, Urine Neg (Neg); Nitrite, Urine Neg (Neg); Protein, Urine Neg (Neg); Specific Gravity, Urine 1.015 (1.003-1.022); Urobilinogen, Urine 4+ (Normal)
[2019-03-14 00:18] LABS: Bacteria Mod /hpf; Mucus Light (0-Heavy); Red Blood Cells, Urine 0-2 /hpf (0-2); Squamous Epithelial Cells Many /hpf (Few)
== END 2019-03-14 01:36 | disposition home or self-care (01) ==
LOC: ER 22:01
PROVIDERS: Physician Assistant
DX: R10.32 Left lower quadrant pain (principal); Z88.1 Allergy status to other antibiotic agents; Z91.048 Other nonmedicinal substance allergy status; Z88.8 Allergy status to other drugs, medicaments and biological substances; Z79.84 Long term (current) use of oral hypoglycemic drugs; Z79.899 Other long term (current) drug therapy; Z79.82 Long term (current) use of aspirin; I25.2 Old myocardial infarction; F41.9 Anxiety disorder, unspecified; E11.9 Type 2 diabetes mellitus without complications; I10 Essential (primary) hypertension; I49.9 Cardiac arrhythmia, unspecified; Z87.891 Personal history of nicotine dependence
CPT/HCPCS: 36415; 74177; 80053; 81001; 83690; 85025; 87086; 93005; 93010; 96374; 96375; 99284-25; J2270; J2405; Q9967

== ENCOUNTER 2019-03-17 06:55 | Inpatient (IN) | payer MEDICARE ==
[~2019-03-17] VITALS: Ht 170.2 cm; Wt 161.8 kg
[2019-03-17 07:22] LABS: Source, Urine Clean Catch
[2019-03-17 07:31] LABS: Appearance, Urine Clear (Clear); Bilirubin, Urine Neg (Neg); Blood, Urine 1+ (Neg); Color, Urine Yellow (P-Yellow); Glucose Qualitative, Urine Neg (Neg); Ketones, Urine Neg (Neg); Leukocyte Esterase, Urine Neg (Neg); Nitrite, Urine Neg (Neg); Protein, Urine Neg (Neg); Urobilinogen, Urine NORM (Normal)
[2019-03-17 07:40] LABS: Bacteria Not Seen /hpf; Red Blood Cells, Urine 0-2 /hpf (0-2); Squamous Epithelial Cells Mod /hpf (Few); White Blood Cells, Urine 0-2 /hpf (0-5)
[2019-03-17 08:15] LABS: BASOPHILS ABSOLUTE AUTO 0.05 K/mm3 (0.00-0.23); BASOPHILS PERCENT AUTO 1 % (0-2); EOSINOPHILS ABSOLUTE AUTO 0.14 K/mm3 (0.00-0.68); EOSINOPHILS PERCENT AUTO 2 % (0-6); Hematocrit 38.6 % (33.0-51.0); Hemoglobin 12.7 g/dL (11.5-16.0); IMMATURE GRAN ABSOLUTE AUTO 0.03 K/mm3 (0.00-0.10); IMMATURE GRAN PERCENT AUTO 0 % (0-1); LYMPHOCYTES ABSOLUTE AUTO 2.67 K/mm3 (0.84-5.20); LYMPHOCYTES PERCENT AUTO 29 % (21-46); MONOCYTES PERCENT AUTO 5 % (4-13); Mean Corpuscular HGB 31.4 pg (26.0-34.0); Mean Corpuscular HGB Conc 32.9 g/dL (31.5-36.5); Mean Corpuscular Volume 95 fL (80-100); Mean Platelet Volume 9.9 fL (9.1-12.4); NEUTROPHILS ABSOLUTE AUTO 5.85 K/mm3 (1.96-9.15); NEUTROPHILS PERCENT AUTO 63 % (41-73); Platelet Count 244 K/mm3 (150-400); RDW Coefficient Variation 12.9 % (11.7-14.2); RDW Standard Deviation 45.6 fL (35.1-46.3); Red Blood Cell Count 4.05 M/mm3 (3.80-5.20); White Blood Cell Count 9.24 K/mm3 (4.00-11.30)
[2019-03-17 08:22] LABS: Alanine Aminotransfer (ALT/SGP 27 U/L (12-78); Albumin, Blood 3.2 g/dL (3.4-5.0); Albumin/Globulin Ratio 0.8 (0.8-1.8); Alk Phos 87 U/L (50-136); Anion Gap 7 mmol/L (6-16); Aspartate Aminotrans (AST/SGOT 12 U/L (12-37); Bilirubin, Total 0.4 mg/dL (0.1-1.0); Blood Urea Nitrogen 16 mg/dL (8-24); Bun/Creatinine Ratio 26.7 (12.0-20.0); CO2, Blood 25 mmol/L (21-32); Calcium, Blood 9.1 mg/dL (8.5-10.1); Chloride, Blood 107 mmol/L (98-108); Glomerular Filtration Rate >60 (60-); Glucose, Blood 86 mg/dL (70-99); Potassium, Blood 4.1 mmol/L (3.5-5.5); Sodium, Blood 139 mmol/L (136-145); Total Protein, Blood 7.2 g/dL (6.4-8.2)
[2019-03-17 11:11] LABS: Triglycerides 96 mg/dL (30-160)
[2019-03-17] MEDS ORDERED: BUTONI (11:47)
[2019-03-17] MEDS ORDERED: Esgic Tablet1 EACH PO (11:48)
[2019-03-17] MEDS ORDERED: DIVA500EC PO (11:49)
[2019-03-17] MEDS ORDERED: B-121000 MC3 PO (11:49)
--- NOTE | 2019-03-17 11:53 | NUR ---
REPORT RECIEVED FROM DEIRDRE REDMAN. AWAITING ARRIVAL AT THIS TIME
--- NOTE | 2019-03-17 18:13 | NUR ---
SHIFT SUMMARY PT AXO, PLEASANT AND COOPERATIVE WITH CARE. COMPLAINED OF R ARM PAIN, MEDICATED PER EMAR. EGD WITH ABLATION DONE THIS SHIFT, SEE DR MALIK'S NOTE. PHYSICAL THERPY WORKED WITH PATIENT, SEE ASSESSMENT. PT'S SON WAS CONCERNED ABOUT BEING ABLE TO CARE FOR PATIENT AT HOME. HE STATES THAT HE PREFERS PT TO GO TO SNF PRIOR TO GOING HOME AGAIN. PT NEEDS MORE CARE THAN HE CAN PROVIDE AT THIS POINT. NURSE EDUCATED PATIENT'S SON THAT PHYSICAL THERAPY IS RECOMMENDING SNF AT THIS POINT. PT UP WITH 1 ASSIST TO BSC. IV PATENT AND SALINE LOCKED. BED IN LOW POSITION, CALL LIGHT WITHIN REACH.
--- NOTE | 2019-03-17 18:53 | NUR ---
SHIFT SUMMARY PT AXO, PLEASANT AND COOPERATIVE WITH CARE. ADMISSION PROCESS COMPLETE. PT ARRIVED AT 1204 TO ROOM. IV PATENT AND INFUSING. VSS. 94% ON RA. NO ACUTE CHANGES SINCE ARRIVAL. PT COMPLAINED OF MANRIQUE, MEDICATED PER EMAR. UP AD KARYN IN ROOM. BED IN LOW POSITION, CALL LIGHT WITHIN REACH.
--- NOTE | 2019-03-18 03:57 | NUR ---
PT RESTING QUIETLY WITH OCCASIONAL EPISODES OF WAKING TO GO TO BR. RECEIVED ANALGESIC X 1 OF THIS WRITING. IVF INFUSING AT 125 ML/HR PER APR - SEE MAR FOR DETAILS. NPO EXCEPT MEDS WITH SM AMT WATER. TOLERATED WELL. CALL LIGHT IN REACH.
[2019-03-18 05:24] LABS: BASOPHILS ABSOLUTE AUTO 0.04 K/mm3 (0.00-0.23); BASOPHILS PERCENT AUTO 1 % (0-2); EOSINOPHILS ABSOLUTE AUTO 0.11 K/mm3 (0.00-0.68); EOSINOPHILS PERCENT AUTO 2 % (0-6); Hematocrit 35.8 % (33.0-51.0); Hemoglobin 11.6 g/dL (11.5-16.0); IMMATURE GRAN ABSOLUTE AUTO 0.02 K/mm3 (0.00-0.10); IMMATURE GRAN PERCENT AUTO 0 % (0-1); LYMPHOCYTES ABSOLUTE AUTO 2.28 K/mm3 (0.84-5.20); LYMPHOCYTES PERCENT AUTO 45 % (21-46); MONOCYTES ABSOLUTE AUTO 0.29 K/mm3 (0.16-1.47); MONOCYTES PERCENT AUTO 6 % (4-13); Mean Corpuscular HGB 31.4 pg (26.0-34.0); Mean Corpuscular HGB Conc 32.4 g/dL (31.5-36.5); Mean Corpuscular Volume 97 fL (80-100); Mean Platelet Volume 9.9 fL (9.1-12.4); NEUTROPHILS ABSOLUTE AUTO 2.34 K/mm3 (1.96-9.15); NEUTROPHILS PERCENT AUTO 46 % (41-73); Platelet Count 212 K/mm3 (150-400); RDW Coefficient Variation 13.2 % (11.7-14.2); RDW Standard Deviation 46.6 fL (35.1-46.3); White Blood Cell Count 5.08 K/mm3 (4.00-11.30)
[2019-03-18 05:46] LABS: Alanine Aminotransfer (ALT/SGP 25 U/L (12-78); Albumin, Blood 2.7 g/dL (3.4-5.0); Albumin/Globulin Ratio 0.8 (0.8-1.8); Alk Phos 75 U/L (50-136); Anion Gap 6 mmol/L (6-16); Aspartate Aminotrans (AST/SGOT 12 U/L (12-37); Bilirubin, Total 0.6 mg/dL (0.1-1.0); Blood Urea Nitrogen 14 mg/dL (8-24); Bun/Creatinine Ratio 22.9 (12.0-20.0); CO2, Blood 26 mmol/L (21-32); Calcium, Blood 8.4 mg/dL (8.5-10.1); Chloride, Blood 109 mmol/L (98-108); Creatinine, Blood 0.61 mg/dL (0.40-1.00); Globulin, Blood 3.6 g/dL (2.2-4.0); Glomerular Filtration Rate >60 (60-); Glucose, Blood 75 mg/dL (70-99); Potassium, Blood 3.6 mmol/L (3.5-5.5); Sodium, Blood 141 mmol/L (136-145); Total Protein, Blood 6.3 g/dL (6.4-8.2)
--- NOTE | 2019-03-18 14:17 | NUR ---
THIS NURSE CALLED DR ASHER AT 1417 TO NOTIFY HER THAT PT TOLERATED LUNCH WELL AND DENIES PAIN. AT 1325 PT COMPLAINED OF ONE EPISODE OF "BEING LIGHTHEADED". VS MEASURED, STABLE. PT DENIES LIGHTHEADEDNESS AT THIS TIME.
[2019-03-18] MEDS ORDERED: ACET325 PO (14:39)
--- NOTE | 2019-03-18 15:33 | NUR ---
SHIFT SUMMARY PT DISCHARGED TO HOME. PT LEFT ROOM VIA WHEELCHAIR PRIOR TO THIS NOTE. IV DC'D AND BELONGINGS RETURNED. PT EDUCATED ON DISCHARGE INSTRUCTIONS, INSTRUCTED TO FOLLOW UP WITH PCP, PANCREATITIS, MIGRAINE AND DIABETES. PT AGRESS TO FOLLOW UP WITH PCP.
[2019-03-19] MEDS ORDERED: Norco 5-325 Ta1 EACH PO (17:25)
== END 2019-03-18 15:09 | disposition home or self-care (01) | DRG 439 ==
LOC: ER 06:55 → MEDS 10:57 → ER 11:56 → MEDS 12:06
PROVIDERS: Emergency Medicine; Nurse Practitioner Acute Care; ADMIT Hospitalist
DX: K85.90 Acute pancreatitis without necrosis or infection, unspecified (principal); Z68.43 Body mass index [BMI] 50.0-59.9, adult; I10 Essential (primary) hypertension; E03.9 Hypothyroidism, unspecified; E11.9 Type 2 diabetes mellitus without complications; G43.909 Migraine, unspecified, not intractable, without status migrainosus; E78.5 Hyperlipidemia, unspecified; E66.01 Morbid (severe) obesity due to excess calories; F32.9 Major depressive disorder, single episode, unspecified; K63.5 Polyp of colon; Z79.84 Long term (current) use of oral hypoglycemic drugs; Z79.82 Long term (current) use of aspirin; Z79.899 Other long term (current) drug therapy; I25.2 Old myocardial infarction; Z87.891 Personal history of nicotine dependence
CPT/HCPCS: 36415; 76700; 80053; 81001; 82947; 83690; 84478; 85025; 96361; 96374; 96375; 96376; 99285-25; A9270; J1650; J2270; J2405; J7030

== ENCOUNTER 2019-03-19 15:49 | Emergency (ER) | payer MEDICARE ==
[~2019-03-19] VITALS: Ht 170.2 cm; Wt 154.2 kg
[~2019-03-19 15:49] MED LIST changes: +B-121000 MC3 PO; +BUTONI; +DIVA500EC PO
[2019-03-19 16:27] LABS: BASOPHILS ABSOLUTE AUTO 0.04 K/mm3 (0.00-0.23); BASOPHILS PERCENT AUTO 1 % (0-2); EOSINOPHILS PERCENT AUTO 2 % (0-6); Hemoglobin 13.1 g/dL (11.5-16.0); IMMATURE GRAN ABSOLUTE AUTO 0.03 K/mm3 (0.00-0.10); IMMATURE GRAN PERCENT AUTO 1 % (0-1); LYMPHOCYTES ABSOLUTE AUTO 2.08 K/mm3 (0.84-5.20); LYMPHOCYTES PERCENT AUTO 33 % (21-46); MONOCYTES ABSOLUTE AUTO 0.46 K/mm3 (0.16-1.47); MONOCYTES PERCENT AUTO 7 % (4-13); Mean Corpuscular HGB 31.3 pg (26.0-34.0); Mean Corpuscular HGB Conc 32.8 g/dL (31.5-36.5); Mean Corpuscular Volume 96 fL (80-100); Mean Platelet Volume 9.7 fL (9.1-12.4); NEUTROPHILS ABSOLUTE AUTO 3.52 K/mm3 (1.96-9.15); NEUTROPHILS PERCENT AUTO 57 % (41-73); Platelet Count 253 K/mm3 (150-400); RDW Coefficient Variation 13.1 % (11.7-14.2); Red Blood Cell Count 4.18 M/mm3 (3.80-5.20); White Blood Cell Count 6.23 K/mm3 (4.00-11.30)
[2019-03-19 16:41] LABS: Alanine Aminotransfer (ALT/SGP 27 U/L (12-78); Albumin, Blood 3.2 g/dL (3.4-5.0); Albumin/Globulin Ratio 0.8 (0.8-1.8); Alk Phos 89 U/L (50-136); Anion Gap 4 mmol/L (6-16); Aspartate Aminotrans (AST/SGOT 10 U/L (12-37); Bilirubin, Total 0.4 mg/dL (0.1-1.0); Blood Urea Nitrogen 14 mg/dL (8-24); Bun/Creatinine Ratio 20.6 (12.0-20.0); CO2, Blood 31 mmol/L (21-32); Calcium, Blood 9.7 mg/dL (8.5-10.1); Chloride, Blood 106 mmol/L (98-108); Creatinine, Blood 0.68 mg/dL (0.40-1.00); Glomerular Filtration Rate >60 (60-); Glucose, Blood 65 mg/dL (70-99); Potassium, Blood 4.1 mmol/L (3.5-5.5); Sodium, Blood 141 mmol/L (136-145); Total Protein, Blood 7.2 g/dL (6.4-8.2)
[2019-03-19] MEDS ORDERED: Norco 5-325 Ta1 EACH PO (17:25)
== END 2019-03-19 17:36 | disposition home or self-care (01) ==
LOC: ER 15:49
PROVIDERS: Physician Assistant
DX: R10.13 Epigastric pain (principal); R10.12 Left upper quadrant pain; I10 Essential (primary) hypertension; E11.9 Type 2 diabetes mellitus without complications; I25.2 Old myocardial infarction; E78.5 Hyperlipidemia, unspecified; F31.9 Bipolar disorder, unspecified; E03.9 Hypothyroidism, unspecified; G43.909 Migraine, unspecified, not intractable, without status migrainosus; Z87.19 Personal history of other diseases of the digestive system; Z91.048 Other nonmedicinal substance allergy status; Z88.0 Allergy status to penicillin; Z88.8 Allergy status to other drugs, medicaments and biological substances; Z79.899 Other long term (current) drug therapy; Z79.84 Long term (current) use of oral hypoglycemic drugs; Z79.51 Long term (current) use of inhaled steroids; Z79.82 Long term (current) use of aspirin; Z87.891 Personal history of nicotine dependence
CPT/HCPCS: 36415; 80053; 83690; 85025; 99283; A9270-GY

== ENCOUNTER 2019-03-25 20:23 | Emergency (ER) | payer MEDICARE ==
[~2019-03-25] VITALS: Ht 170.2 cm; Wt 154.2 kg
[2019-03-25 21:05] LABS: BASOPHILS ABSOLUTE AUTO 0.04 K/mm3 (0.00-0.23); BASOPHILS PERCENT AUTO 1 % (0-2); EOSINOPHILS ABSOLUTE AUTO 0.06 K/mm3 (0.00-0.68); EOSINOPHILS PERCENT AUTO 1 % (0-6); Hematocrit 40.6 % (33.0-51.0); Hemoglobin 13.4 g/dL (11.5-16.0); IMMATURE GRAN ABSOLUTE AUTO 0.02 K/mm3 (0.00-0.10); IMMATURE GRAN PERCENT AUTO 0 % (0-1); LYMPHOCYTES ABSOLUTE AUTO 2.29 K/mm3 (0.84-5.20); LYMPHOCYTES PERCENT AUTO 31 % (21-46); MONOCYTES PERCENT AUTO 7 % (4-13); Mean Corpuscular HGB 31.5 pg (26.0-34.0); Mean Corpuscular Volume 96 fL (80-100); Mean Platelet Volume 10.3 fL (9.1-12.4); NEUTROPHILS ABSOLUTE AUTO 4.55 K/mm3 (1.96-9.15); NEUTROPHILS PERCENT AUTO 61 % (41-73); Platelet Count 195 K/mm3 (150-400); RDW Coefficient Variation 12.8 % (11.7-14.2); Red Blood Cell Count 4.25 M/mm3 (3.80-5.20); White Blood Cell Count 7.46 K/mm3 (4.00-11.30)
[2019-03-25 21:23] LABS: Alanine Aminotransfer (ALT/SGP 31 U/L (12-78); Albumin, Blood 3.1 g/dL (3.4-5.0); Albumin/Globulin Ratio 0.7 (0.8-1.8); Alk Phos 90 U/L (50-136); Anion Gap 6 mmol/L (6-16); Aspartate Aminotrans (AST/SGOT 17 U/L (12-37); Bilirubin, Total 0.4 mg/dL (0.1-1.0); Blood Urea Nitrogen 18 mg/dL (8-24); CO2, Blood 26 mmol/L (21-32); Calcium, Blood 9.3 mg/dL (8.5-10.1); Chloride, Blood 109 mmol/L (98-108); Creatinine, Blood 0.56 mg/dL (0.40-1.00); Globulin, Blood 4.2 g/dL (2.2-4.0); Glomerular Filtration Rate >60 (60-); Glucose, Blood 118 mg/dL (70-99); Potassium, Blood 3.8 mmol/L (3.5-5.5); Sodium, Blood 141 mmol/L (136-145); Total Protein, Blood 7.3 g/dL (6.4-8.2)
[2019-03-25 21:52] LABS: Source, Urine Clean Catch
[2019-03-25 21:54] LABS: Bilirubin, Urine Neg (Neg); Blood, Urine 1+ (Neg); Glucose Qualitative, Urine Neg (Neg); Ketones, Urine Neg (Neg); Leukocyte Esterase, Urine Neg (Neg); Nitrite, Urine Neg (Neg); Protein, Urine Neg (Neg); Specific Gravity, Urine 1.015 (1.003-1.022); Urobilinogen, Urine 1+ (Normal)
[2019-03-25 22:01] LABS: Appearance, Urine Clear (Clear); Color, Urine Yellow (P-Yellow)
[2019-03-25 22:02] LABS: Amorphous Light (0-Heavy); Bacteria Mod /hpf; Squamous Epithelial Cells Mod /hpf (Few); White Blood Cells, Urine 0-2 /hpf (0-5)
== END 2019-03-25 22:58 | disposition home or self-care (01) ==
LOC: ER 20:23
PROVIDERS: Physician Assistant
DX: K59.00 Constipation, unspecified (principal); I10 Essential (primary) hypertension; E11.9 Type 2 diabetes mellitus without complications; I25.2 Old myocardial infarction; E78.5 Hyperlipidemia, unspecified; E03.9 Hypothyroidism, unspecified; F31.9 Bipolar disorder, unspecified; G43.909 Migraine, unspecified, not intractable, without status migrainosus; Z91.048 Other nonmedicinal substance allergy status; Z88.0 Allergy status to penicillin; Z88.8 Allergy status to other drugs, medicaments and biological substances; Z79.899 Other long term (current) drug therapy; Z79.84 Long term (current) use of oral hypoglycemic drugs; Z79.51 Long term (current) use of inhaled steroids; Z79.82 Long term (current) use of aspirin; Z87.891 Personal history of nicotine dependence
CPT/HCPCS: 36415; 80053; 81001; 83690; 85025; 87086; 99283

== ENCOUNTER 2019-03-30 23:07 | Emergency (ER) | payer MEDICARE ==
[~2019-03-30] VITALS: Ht 170.2 cm; Wt 154.2 kg
== END 2019-03-31 00:56 | disposition home or self-care (01) ==
LOC: ER 23:07
DX: R51 Headache (principal); I25.2 Old myocardial infarction; E78.5 Hyperlipidemia, unspecified; E11.9 Type 2 diabetes mellitus without complications; E03.9 Hypothyroidism, unspecified; I10 Essential (primary) hypertension; F31.9 Bipolar disorder, unspecified; Z91.048 Other nonmedicinal substance allergy status; Z88.8 Allergy status to other drugs, medicaments and biological substances; Z79.899 Other long term (current) drug therapy; Z79.84 Long term (current) use of oral hypoglycemic drugs; Z79.82 Long term (current) use of aspirin; Z87.891 Personal history of nicotine dependence
CPT/HCPCS: 36415; 96374; 96375; 99283; J1100; J1200; J1885; J2765

== ENCOUNTER 2019-04-12 10:45 | Emergency (ER) | payer MEDICARE ==
[~2019-04-12] VITALS: Ht 170.2 cm; Wt 154.2 kg
== END 2019-04-12 14:54 | disposition home or self-care (01) ==
LOC: ER 10:45
DX: G43.909 Migraine, unspecified, not intractable, without status migrainosus (principal); I25.2 Old myocardial infarction; E78.5 Hyperlipidemia, unspecified; E11.9 Type 2 diabetes mellitus without complications; E03.9 Hypothyroidism, unspecified; I10 Essential (primary) hypertension; F31.9 Bipolar disorder, unspecified; Z79.899 Other long term (current) drug therapy; Z87.891 Personal history of nicotine dependence
CPT/HCPCS: 96374; 96375; 99283-25; J1100; J1200; J1885; J2765

== ENCOUNTER 2019-04-15 11:34 | Emergency (ER) | payer MEDICARE ==
[~2019-04-15] VITALS: Ht 170.2 cm; Wt 158.8 kg
[2019-04-15 11:57] LABS: BASOPHILS ABSOLUTE AUTO 0.07 K/mm3 (0.00-0.23); BASOPHILS PERCENT AUTO 1 % (0-2); EOSINOPHILS ABSOLUTE AUTO 0.09 K/mm3 (0.00-0.68); EOSINOPHILS PERCENT AUTO 1 % (0-6); Hematocrit 41.5 % (33.0-51.0); Hemoglobin 13.6 g/dL (11.5-16.0); IMMATURE GRAN ABSOLUTE AUTO 0.06 K/mm3 (0.00-0.10); IMMATURE GRAN PERCENT AUTO 1 % (0-1); LYMPHOCYTES ABSOLUTE AUTO 3.49 K/mm3 (0.84-5.20); LYMPHOCYTES PERCENT AUTO 38 % (21-46); MONOCYTES PERCENT AUTO 7 % (4-13); Mean Corpuscular HGB 31.6 pg (26.0-34.0); Mean Corpuscular HGB Conc 32.8 g/dL (31.5-36.5); Mean Corpuscular Volume 97 fL (80-100); Mean Platelet Volume 9.7 fL (9.1-12.4); NEUTROPHILS ABSOLUTE AUTO 4.87 K/mm3 (1.96-9.15); NEUTROPHILS PERCENT AUTO 53 % (41-73); Platelet Count 260 K/mm3 (150-400); RDW Coefficient Variation 13.4 % (11.7-14.2); RDW Standard Deviation 47.7 fL (35.1-46.3); White Blood Cell Count 9.18 K/mm3 (4.00-11.30)
[2019-04-15 12:17] LABS: Alanine Aminotransfer (ALT/SGP 26 U/L (12-78); Albumin, Blood 3.1 g/dL (3.4-5.0); Albumin/Globulin Ratio 0.7 (0.8-1.8); Alk Phos 91 U/L (50-136); Anion Gap 6 mmol/L (6-16); Aspartate Aminotrans (AST/SGOT 16 U/L (12-37); Bilirubin, Total 0.3 mg/dL (0.1-1.0); Blood Urea Nitrogen 22 mg/dL (8-24); Bun/Creatinine Ratio 35.3 (12.0-20.0); CO2, Blood 30 mmol/L (21-32); Calcium, Blood 9.4 mg/dL (8.5-10.1); Chloride, Blood 103 mmol/L (98-108); Creatinine, Blood 0.62 mg/dL (0.40-1.00); Globulin, Blood 4.2 g/dL (2.2-4.0); Glomerular Filtration Rate >60 (60-); Glucose, Blood 94 mg/dL (70-99); Sodium, Blood 139 mmol/L (136-145); Total Protein, Blood 7.3 g/dL (6.4-8.2)
[2019-04-15 12:29] LABS: Source, Urine Clean Catch
[2019-04-15 12:31] LABS: Appearance, Urine Clear (Clear); Bilirubin, Urine Neg (Neg); Blood, Urine 1+ (Neg); Color, Urine Yellow (P-Yellow); Glucose Qualitative, Urine Neg (Neg); Ketones, Urine Neg (Neg); Leukocyte Esterase, Urine Neg (Neg); Nitrite, Urine Neg (Neg); Protein, Urine Neg (Neg); Specific Gravity, Urine 1.025 (1.003-1.022); Urobilinogen, Urine NORM (Normal)
[2019-04-15 12:37] LABS: Bacteria Few /hpf; Calcium Oxalate Crystals Many /hpf; Red Blood Cells, Urine 0-2 /hpf (0-2); Squamous Epithelial Cells Many /hpf (Few); White Blood Cells, Urine Not Seen /hpf (0-5)
== END 2019-04-15 14:43 | disposition home or self-care (01) ==
LOC: ER 11:34
PROVIDERS: Emergency Medicine
DX: R10.13 Epigastric pain (principal); I25.2 Old myocardial infarction; E78.5 Hyperlipidemia, unspecified; E11.9 Type 2 diabetes mellitus without complications; E03.9 Hypothyroidism, unspecified; I10 Essential (primary) hypertension; F31.9 Bipolar disorder, unspecified; G43.909 Migraine, unspecified, not intractable, without status migrainosus; Z79.899 Other long term (current) drug therapy; Z87.891 Personal history of nicotine dependence
CPT/HCPCS: 36415; 76705; 80053; 81001; 83690; 85025; 96374; 99284-25; J1885

== ENCOUNTER 2019-04-17 01:22 | Emergency (ER) | payer MEDICARE ==
[~2019-04-17] VITALS: Ht 170.2 cm; Wt 158.8 kg
[2019-04-17 01:47] LABS: BASOPHILS ABSOLUTE AUTO 0.07 K/mm3 (0.00-0.23); BASOPHILS PERCENT AUTO 1 % (0-2); EOSINOPHILS ABSOLUTE AUTO 0.14 K/mm3 (0.00-0.68); EOSINOPHILS PERCENT AUTO 2 % (0-6); Hematocrit 40.6 % (33.0-51.0); Hemoglobin 13.5 g/dL (11.5-16.0); IMMATURE GRAN ABSOLUTE AUTO 0.06 K/mm3 (0.00-0.10); IMMATURE GRAN PERCENT AUTO 1 % (0-1); LYMPHOCYTES ABSOLUTE AUTO 3.59 K/mm3 (0.84-5.20); LYMPHOCYTES PERCENT AUTO 40 % (21-46); MONOCYTES ABSOLUTE AUTO 0.73 K/mm3 (0.16-1.47); MONOCYTES PERCENT AUTO 8 % (4-13); Mean Corpuscular HGB 31.5 pg (26.0-34.0); Mean Corpuscular HGB Conc 33.3 g/dL (31.5-36.5); Mean Corpuscular Volume 95 fL (80-100); Mean Platelet Volume 9.7 fL (9.1-12.4); NEUTROPHILS ABSOLUTE AUTO 4.46 K/mm3 (1.96-9.15); NEUTROPHILS PERCENT AUTO 49 % (41-73); Platelet Count 234 K/mm3 (150-400); RDW Coefficient Variation 13.2 % (11.7-14.2); RDW Standard Deviation 45.7 fL (35.1-46.3); Red Blood Cell Count 4.28 M/mm3 (3.80-5.20); White Blood Cell Count 9.05 K/mm3 (4.00-11.30)
[2019-04-17 02:04] LABS: Alanine Aminotransfer (ALT/SGP 22 U/L (12-78); Albumin/Globulin Ratio 0.7 (0.8-1.8); Alk Phos 90 U/L (50-136); Anion Gap 6 mmol/L (6-16); Aspartate Aminotrans (AST/SGOT 9 U/L (12-37); Bilirubin, Total 0.3 mg/dL (0.1-1.0); Blood Urea Nitrogen 18 mg/dL (8-24); Bun/Creatinine Ratio 23.9 (12.0-20.0); CO2, Blood 29 mmol/L (21-32); Calcium, Blood 9.2 mg/dL (8.5-10.1); Chloride, Blood 107 mmol/L (98-108); Creatinine, Blood 0.75 mg/dL (0.40-1.00); Globulin, Blood 4.2 g/dL (2.2-4.0); Glomerular Filtration Rate >60 (60-); Glucose, Blood 104 mg/dL (70-99); Potassium, Blood 4.4 mmol/L (3.5-5.5); Sodium, Blood 142 mmol/L (136-145); Total Protein, Blood 7.2 g/dL (6.4-8.2); Troponin I <0.015 ng/mL (0.000-0.040)
[2019-04-17 02:21] LABS: Free Thyroxine 1.11 ng/dL (0.70-1.60)
[2019-04-17] MEDS ORDERED: METO10 PO (22:52)
[2019-04-18] MEDS ORDERED: BENZ100A PO (22:55)
== END 2019-04-17 03:56 | disposition home or self-care (01) ==
LOC: ER 01:22
PROVIDERS: Emergency Medicine
DX: R07.9 Chest pain, unspecified (principal); E11.9 Type 2 diabetes mellitus without complications; F31.9 Bipolar disorder, unspecified; I10 Essential (primary) hypertension; E78.5 Hyperlipidemia, unspecified; E03.9 Hypothyroidism, unspecified; I25.2 Old myocardial infarction
CPT/HCPCS: 36415; 71046; 80053; 84439; 84443; 84484; 85025; 85379; 93005; 93010

== ENCOUNTER 2019-04-17 17:45 | Emergency (ER) | payer MEDICARE ==
[~2019-04-17] VITALS: Ht 170.2 cm; Wt 158.8 kg
[2019-04-17 18:52] LABS: BASOPHILS ABSOLUTE AUTO 0.05 K/mm3 (0.00-0.23); BASOPHILS PERCENT AUTO 1 % (0-2); EOSINOPHILS ABSOLUTE AUTO 0.15 K/mm3 (0.00-0.68); EOSINOPHILS PERCENT AUTO 1 % (0-6); Hematocrit 41.1 % (33.0-51.0); Hemoglobin 13.6 g/dL (11.5-16.0); IMMATURE GRAN ABSOLUTE AUTO 0.08 K/mm3 (0.00-0.10); IMMATURE GRAN PERCENT AUTO 1 % (0-1); LYMPHOCYTES ABSOLUTE AUTO 3.23 K/mm3 (0.84-5.20); LYMPHOCYTES PERCENT AUTO 31 % (21-46); MONOCYTES ABSOLUTE AUTO 0.86 K/mm3 (0.16-1.47); MONOCYTES PERCENT AUTO 8 % (4-13); Mean Corpuscular HGB 31.5 pg (26.0-34.0); Mean Corpuscular HGB Conc 33.1 g/dL (31.5-36.5); Mean Corpuscular Volume 95 fL (80-100); NEUTROPHILS ABSOLUTE AUTO 6.08 K/mm3 (1.96-9.15); NEUTROPHILS PERCENT AUTO 58 % (41-73); Platelet Count 263 K/mm3 (150-400); RDW Coefficient Variation 13.1 % (11.7-14.2); RDW Standard Deviation 46.2 fL (35.1-46.3); Red Blood Cell Count 4.32 M/mm3 (3.80-5.20); White Blood Cell Count 10.45 K/mm3 (4.00-11.30)
[2019-04-17 19:17] LABS: Alanine Aminotransfer (ALT/SGP 24 U/L (12-78); Albumin, Blood 3.4 g/dL (3.4-5.0); Albumin/Globulin Ratio 0.8 (0.8-1.8); Alk Phos 89 U/L (50-136); Anion Gap 3 mmol/L (6-16); Aspartate Aminotrans (AST/SGOT 12 U/L (12-37); Bilirubin, Total 0.7 mg/dL (0.1-1.0); Blood Urea Nitrogen 17 mg/dL (8-24); Bun/Creatinine Ratio 28.2 (12.0-20.0); CO2, Blood 31 mmol/L (21-32); Calcium, Blood 9.9 mg/dL (8.5-10.1); Chloride, Blood 102 mmol/L (98-108); Globulin, Blood 4.4 g/dL (2.2-4.0); Glomerular Filtration Rate >60 (60-); Glucose, Blood 84 mg/dL (70-99); Potassium, Blood 4.1 mmol/L (3.5-5.5); Sodium, Blood 136 mmol/L (136-145); Total Protein, Blood 7.8 g/dL (6.4-8.2)
[2019-04-17 20:36] LABS: Source, Urine Clean Catch
[2019-04-17 20:41] LABS: Bilirubin, Urine Neg (Neg); Blood, Urine 1+ (Neg); Glucose Qualitative, Urine Neg (Neg); Ketones, Urine Neg (Neg); Leukocyte Esterase, Urine Neg (Neg); Nitrite, Urine Neg (Neg); Protein, Urine Neg (Neg); Specific Gravity, Urine 1.015 (1.003-1.022); Urobilinogen, Urine NORM (Normal)
[2019-04-17 20:57] LABS: Appearance, Urine Clear (Clear); Color, Urine Yellow (P-Yellow); Squamous Epithelial Cells Mod /hpf (Few); White Blood Cells, Urine 0-2 /hpf (0-5)
[2019-04-17 20:58] LABS: Bacteria Few /hpf
[2019-04-17] MEDS ORDERED: METO10 PO (22:52)
[2019-04-18] MEDS ORDERED: BENZ100A PO (22:55)
== END 2019-04-17 23:00 | disposition home or self-care (01) ==
LOC: ER 17:45
PROVIDERS: Physician Assistant
DX: R11.2 Nausea with vomiting, unspecified (principal); E78.5 Hyperlipidemia, unspecified; E11.9 Type 2 diabetes mellitus without complications; E03.9 Hypothyroidism, unspecified; F31.9 Bipolar disorder, unspecified; I10 Essential (primary) hypertension; I25.2 Old myocardial infarction; Z87.891 Personal history of nicotine dependence; Z88.0 Allergy status to penicillin; Z88.8 Allergy status to other drugs, medicaments and biological substances; Z91.048 Other nonmedicinal substance allergy status; Z79.82 Long term (current) use of aspirin; Z79.84 Long term (current) use of oral hypoglycemic drugs; Z79.899 Other long term (current) drug therapy; I25.10 Atherosclerotic heart disease of native coronary artery without angina pectoris
CPT/HCPCS: 36415; 80053; 81001; 82947; 83690; 85025; 96374; 96375; 99283-25; J1200; J2405; J2765; J7120

== ENCOUNTER 2019-04-18 20:49 | Emergency (ER) | payer MEDICARE ==
[~2019-04-18] VITALS: Ht 170.2 cm; Wt 158.8 kg
[~2019-04-18 20:49] MED LIST changes: +METO10 PO
[2019-04-18 21:28] LABS: BASOPHILS ABSOLUTE AUTO 0.04 K/mm3 (0.00-0.23); BASOPHILS PERCENT AUTO 1 % (0-2); EOSINOPHILS ABSOLUTE AUTO 0.27 K/mm3 (0.00-0.68); EOSINOPHILS PERCENT AUTO 3 % (0-6); Hematocrit 41.3 % (33.0-51.0); Hemoglobin 13.7 g/dL (11.5-16.0); IMMATURE GRAN ABSOLUTE AUTO 0.03 K/mm3 (0.00-0.10); IMMATURE GRAN PERCENT AUTO 0 % (0-1); LYMPHOCYTES ABSOLUTE AUTO 2.26 K/mm3 (0.84-5.20); LYMPHOCYTES PERCENT AUTO 27 % (21-46); MONOCYTES ABSOLUTE AUTO 0.79 K/mm3 (0.16-1.47); MONOCYTES PERCENT AUTO 9 % (4-13); Mean Corpuscular HGB 31.7 pg (26.0-34.0); Mean Corpuscular HGB Conc 33.2 g/dL (31.5-36.5); Mean Corpuscular Volume 96 fL (80-100); Mean Platelet Volume 9.8 fL (9.1-12.4); NEUTROPHILS ABSOLUTE AUTO 5.02 K/mm3 (1.96-9.15); NEUTROPHILS PERCENT AUTO 60 % (41-73); Platelet Count 244 K/mm3 (150-400); RDW Coefficient Variation 13.3 % (11.7-14.2); RDW Standard Deviation 47.6 fL (35.1-46.3); Red Blood Cell Count 4.32 M/mm3 (3.80-5.20); White Blood Cell Count 8.41 K/mm3 (4.00-11.30)
[2019-04-18 21:48] LABS: Anion Gap 4 mmol/L (6-16); Blood Urea Nitrogen 18 mg/dL (8-24); Bun/Creatinine Ratio 28.2 (12.0-20.0); CO2, Blood 28 mmol/L (21-32); Calcium, Blood 9.3 mg/dL (8.5-10.1); Chloride, Blood 105 mmol/L (98-108); Creatinine, Blood 0.64 mg/dL (0.40-1.00); Glomerular Filtration Rate >60 (60-); Glucose, Blood 124 mg/dL (70-99); Potassium, Blood 3.9 mmol/L (3.5-5.5); Sodium, Blood 137 mmol/L (136-145); Troponin I <0.015 ng/mL (0.000-0.040)
[2019-04-18] MEDS ORDERED: BENZ100A PO (22:55)
== END 2019-04-18 23:20 | disposition home or self-care (01) ==
LOC: ER 20:49
PROVIDERS: Physician Assistant
DX: J06.9 Acute upper respiratory infection, unspecified (principal); E11.9 Type 2 diabetes mellitus without complications; F31.9 Bipolar disorder, unspecified; I10 Essential (primary) hypertension; I25.2 Old myocardial infarction; E03.9 Hypothyroidism, unspecified; Z87.891 Personal history of nicotine dependence; Z88.0 Allergy status to penicillin; Z91.048 Other nonmedicinal substance allergy status; Z88.8 Allergy status to other drugs, medicaments and biological substances; Z79.82 Long term (current) use of aspirin; Z79.899 Other long term (current) drug therapy; Z79.84 Long term (current) use of oral hypoglycemic drugs
CPT/HCPCS: 36415; 71046; 80048; 84484; 85025; 93005; 93010; 99283-25

== ENCOUNTER 2019-04-21 06:44 | Emergency (ER) | payer MEDICARE ==
[~2019-04-21] VITALS: Ht 165.1 cm; Wt 124.7 kg
[~2019-04-21 06:44] MED LIST changes: +BENZ100A PO
[2019-04-24] MEDS ORDERED: Vistaril25 MG PO (13:08)
== END 2019-04-21 07:46 | disposition home or self-care (01) ==
LOC: ER 06:44
DX: G43.909 Migraine, unspecified, not intractable, without status migrainosus (principal); I10 Essential (primary) hypertension; I25.10 Atherosclerotic heart disease of native coronary artery without angina pectoris; E11.9 Type 2 diabetes mellitus without complications; E78.5 Hyperlipidemia, unspecified; F31.9 Bipolar disorder, unspecified; E03.9 Hypothyroidism, unspecified; Z87.891 Personal history of nicotine dependence; Z79.899 Other long term (current) drug therapy; Z79.84 Long term (current) use of oral hypoglycemic drugs; Z79.01 Long term (current) use of anticoagulants; Z79.82 Long term (current) use of aspirin
CPT/HCPCS: 96374; 96375; 99283-25; J0780; J1170; J1200; J1885

== ENCOUNTER 2019-04-26 00:20 | Emergency (ER) | payer MEDICARE ==
[~2019-04-26] VITALS: Ht 170.2 cm; Wt 158.8 kg
[~2019-04-26 00:20] MED LIST changes: +Vistaril25 MG PO
[2019-04-26] MEDS ORDERED: CEPH500 PO (04:34)
== END 2019-04-26 04:51 | disposition home or self-care (01) ==
LOC: ER 00:20
DX: L73.9 Follicular disorder, unspecified (principal); I25.2 Old myocardial infarction; E78.5 Hyperlipidemia, unspecified; E11.9 Type 2 diabetes mellitus without complications; E03.9 Hypothyroidism, unspecified; I10 Essential (primary) hypertension; F31.9 Bipolar disorder, unspecified; G43.909 Migraine, unspecified, not intractable, without status migrainosus; Z79.899 Other long term (current) drug therapy; Z87.891 Personal history of nicotine dependence
CPT/HCPCS: 99283; A9270-GY

== ENCOUNTER 2019-04-29 20:47 | Emergency (ER) | payer MEDICARE ==
[~2019-04-29] VITALS: Ht 170.2 cm; Wt 158.8 kg
[~2019-04-29 20:47] MED LIST changes: +CEPH500 PO
[2019-04-29] MEDS ORDERED: Permethrin60 GM TOP (21:55)
== END 2019-04-29 22:11 | disposition home or self-care (01) ==
LOC: ER 20:47
DX: B86 Scabies (principal); Z88.0 Allergy status to penicillin; Z88.8 Allergy status to other drugs, medicaments and biological substances; Z91.048 Other nonmedicinal substance allergy status; Z79.899 Other long term (current) drug therapy; Z79.84 Long term (current) use of oral hypoglycemic drugs; Z79.82 Long term (current) use of aspirin; E78.5 Hyperlipidemia, unspecified; I25.2 Old myocardial infarction; E11.9 Type 2 diabetes mellitus without complications; E03.9 Hypothyroidism, unspecified; I10 Essential (primary) hypertension; F31.9 Bipolar disorder, unspecified; Z87.891 Personal history of nicotine dependence
CPT/HCPCS: 99282

== ENCOUNTER 2019-05-06 20:00 | Emergency (ER) | payer MEDICARE ==
[~2019-05-06] VITALS: Ht 170.2 cm; Wt 158.8 kg
[~2019-05-06 20:00] MED LIST changes: +Permethrin60 GM TOP
== END 2019-05-07 00:17 | disposition home or self-care (01) ==
LOC: ER 20:00
DX: R21 Rash and other nonspecific skin eruption (principal); I25.2 Old myocardial infarction; E78.5 Hyperlipidemia, unspecified; E11.9 Type 2 diabetes mellitus without complications; E03.9 Hypothyroidism, unspecified; I10 Essential (primary) hypertension; F31.9 Bipolar disorder, unspecified; G43.909 Migraine, unspecified, not intractable, without status migrainosus; Z87.891 Personal history of nicotine dependence; Z88.8 Allergy status to other drugs, medicaments and biological substances; Z91.048 Other nonmedicinal substance allergy status; Z88.0 Allergy status to penicillin; Z79.82 Long term (current) use of aspirin; Z79.84 Long term (current) use of oral hypoglycemic drugs; Z79.51 Long term (current) use of inhaled steroids; Z79.899 Other long term (current) drug therapy
CPT/HCPCS: 99282

== ENCOUNTER 2019-05-10 15:39 | Emergency (ER) | payer MEDICARE ==
[~2019-05-10] VITALS: Ht 170.2 cm; Wt 158.8 kg
[2019-05-10] MEDS ORDERED: Zithromax250 MG PO (18:44)
[2019-05-14] MEDS ORDERED: Protonix40 MG PO (21:29)
== END 2019-05-10 19:08 | disposition home or self-care (01) ==
LOC: ER 15:39
DX: J44.0 Chronic obstructive pulmonary disease with (acute) lower respiratory infection (principal); J20.9 Acute bronchitis, unspecified; H66.90 Otitis media, unspecified, unspecified ear; I25.2 Old myocardial infarction; E78.5 Hyperlipidemia, unspecified; E11.9 Type 2 diabetes mellitus without complications; E03.9 Hypothyroidism, unspecified; I10 Essential (primary) hypertension; Z79.899 Other long term (current) drug therapy; Z87.891 Personal history of nicotine dependence
CPT/HCPCS: 71046; 99283-25

== ENCOUNTER 2019-05-12 12:23 | Emergency (ER) | payer MEDICARE ==
[~2019-05-12] VITALS: Ht 170.2 cm; Wt 158.8 kg
[~2019-05-12 12:23] MED LIST changes: +Zithromax250 MG PO
[2019-05-12 13:03] LABS: BASOPHILS ABSOLUTE AUTO 0.06 K/mm3 (0.00-0.23); BASOPHILS PERCENT AUTO 1 % (0-2); EOSINOPHILS ABSOLUTE AUTO 0.08 K/mm3 (0.00-0.68); EOSINOPHILS PERCENT AUTO 1 % (0-6); Hematocrit 40.1 % (33.0-51.0); Hemoglobin 12.8 g/dL (11.5-16.0); IMMATURE GRAN ABSOLUTE AUTO 0.04 K/mm3 (0.00-0.10); IMMATURE GRAN PERCENT AUTO 1 % (0-1); LYMPHOCYTES ABSOLUTE AUTO 3.17 K/mm3 (0.84-5.20); LYMPHOCYTES PERCENT AUTO 37 % (21-46); MONOCYTES ABSOLUTE AUTO 0.61 K/mm3 (0.16-1.47); MONOCYTES PERCENT AUTO 7 % (4-13); Mean Corpuscular HGB 31.6 pg (26.0-34.0); Mean Corpuscular HGB Conc 31.9 g/dL (31.5-36.5); Mean Corpuscular Volume 99 fL (80-100); Mean Platelet Volume 9.8 fL (9.1-12.4); NEUTROPHILS ABSOLUTE AUTO 4.64 K/mm3 (1.96-9.15); NEUTROPHILS PERCENT AUTO 54 % (41-73); Platelet Count 265 K/mm3 (150-400); RDW Coefficient Variation 13.2 % (11.7-14.2); RDW Standard Deviation 47.8 fL (35.1-46.3); Red Blood Cell Count 4.05 M/mm3 (3.80-5.20)
[2019-05-12 13:17] LABS: Alanine Aminotransfer (ALT/SGP 24 U/L (12-78); Albumin, Blood 3.1 g/dL (3.4-5.0); Albumin/Globulin Ratio 0.7 (0.8-1.8); Alk Phos 71 U/L (50-136); Anion Gap 4 mmol/L (6-16); Aspartate Aminotrans (AST/SGOT 12 U/L (12-37); Bilirubin, Total 0.5 mg/dL (0.1-1.0); Blood Urea Nitrogen 14 mg/dL (8-24); Bun/Creatinine Ratio 23.9 (12.0-20.0); CO2, Blood 28 mmol/L (21-32); Calcium, Blood 8.9 mg/dL (8.5-10.1); Chloride, Blood 108 mmol/L (98-108); Creatinine, Blood 0.59 mg/dL (0.40-1.00); Globulin, Blood 4.5 g/dL (2.2-4.0); Glomerular Filtration Rate >60 (60-); Glucose, Blood 87 mg/dL (70-99); Potassium, Blood 3.7 mmol/L (3.5-5.5); Sodium, Blood 140 mmol/L (136-145); Total Protein, Blood 7.6 g/dL (6.4-8.2)
[2019-05-14] MEDS ORDERED: Protonix40 MG PO (21:29)
== END 2019-05-12 14:14 | disposition home or self-care (01) ==
LOC: ER 12:23
PROVIDERS: Physician Assistant
DX: R10.10 Upper abdominal pain, unspecified (principal); R11.2 Nausea with vomiting, unspecified; I25.2 Old myocardial infarction; E78.5 Hyperlipidemia, unspecified; E11.9 Type 2 diabetes mellitus without complications; I10 Essential (primary) hypertension; F32.9 Major depressive disorder, single episode, unspecified; Z87.891 Personal history of nicotine dependence; Z88.0 Allergy status to penicillin; Z88.8 Allergy status to other drugs, medicaments and biological substances; Z91.048 Other nonmedicinal substance allergy status; Z79.891 Long term (current) use of opiate analgesic; Z79.899 Other long term (current) drug therapy; Z79.84 Long term (current) use of oral hypoglycemic drugs; Z79.82 Long term (current) use of aspirin
CPT/HCPCS: 36415; 80053; 83690; 85025; 96361; 96374; 96375; 99284-25; J1200; J2765; J7120

== ENCOUNTER 2019-05-24 15:37 | Emergency (ER) | payer MEDICARE ==
[~2019-05-24] VITALS: Ht 170.2 cm; Wt 158.8 kg
[~2019-05-24 15:37] MED LIST changes: +Protonix40 MG PO
[2019-05-24 16:10] LABS: BASOPHILS ABSOLUTE AUTO 0.05 K/mm3 (0.00-0.23); BASOPHILS PERCENT AUTO 1 % (0-2); EOSINOPHILS ABSOLUTE AUTO 0.07 K/mm3 (0.00-0.68); EOSINOPHILS PERCENT AUTO 1 % (0-6); Hematocrit 40.9 % (33.0-51.0); Hemoglobin 13.5 g/dL (11.5-16.0); IMMATURE GRAN ABSOLUTE AUTO 0.01 K/mm3 (0.00-0.10); IMMATURE GRAN PERCENT AUTO 0 % (0-1); LYMPHOCYTES ABSOLUTE AUTO 2.28 K/mm3 (0.84-5.20); LYMPHOCYTES PERCENT AUTO 28 % (21-46); MONOCYTES ABSOLUTE AUTO 0.52 K/mm3 (0.16-1.47); MONOCYTES PERCENT AUTO 6 % (4-13); Mean Corpuscular HGB 31.8 pg (26.0-34.0); Mean Corpuscular Volume 97 fL (80-100); Mean Platelet Volume 9.9 fL (9.1-12.4); NEUTROPHILS ABSOLUTE AUTO 5.17 K/mm3 (1.96-9.15); NEUTROPHILS PERCENT AUTO 64 % (41-73); Platelet Count 260 K/mm3 (150-400); RDW Standard Deviation 46.1 fL (35.1-46.3); Red Blood Cell Count 4.24 M/mm3 (3.80-5.20)
[2019-05-24 16:31] LABS: Alanine Aminotransfer (ALT/SGP 22 U/L (12-78); Albumin, Blood 3.3 g/dL (3.4-5.0); Albumin/Globulin Ratio 0.7 (0.8-1.8); Alk Phos 80 U/L (50-136); Anion Gap 4 mmol/L (6-16); Aspartate Aminotrans (AST/SGOT 28 U/L (12-37); Bilirubin, Total 0.5 mg/dL (0.1-1.0); Blood Urea Nitrogen 19 mg/dL (8-24); Bun/Creatinine Ratio 33.6 (12.0-20.0); CO2, Blood 30 mmol/L (21-32); Calcium, Blood 9.8 mg/dL (8.5-10.1); Chloride, Blood 106 mmol/L (98-108); Creatinine, Blood 0.57 mg/dL (0.40-1.00); Globulin, Blood 4.7 g/dL (2.2-4.0); Glomerular Filtration Rate >60 (60-); Glucose, Blood 104 mg/dL (70-99); Potassium, Blood 4.5 mmol/L (3.5-5.5); Sodium, Blood 140 mmol/L (136-145); Troponin I <0.015 ng/mL (0.000-0.040)
== END 2019-05-24 18:41 | disposition home or self-care (01) ==
LOC: ER 15:37
PROVIDERS: Physician Assistant
DX: R07.9 Chest pain, unspecified (principal); G43.909 Migraine, unspecified, not intractable, without status migrainosus; I25.2 Old myocardial infarction; E78.5 Hyperlipidemia, unspecified; E11.9 Type 2 diabetes mellitus without complications; E03.9 Hypothyroidism, unspecified; I10 Essential (primary) hypertension; Z79.899 Other long term (current) drug therapy
CPT/HCPCS: 36415; 71046; 80053; 84484; 85025; 93005; 93010; 99285-25

== ENCOUNTER 2019-06-08 15:10 | Emergency (ER) | payer MEDICARE ==
[~2019-06-08] VITALS: Ht 170.2 cm; Wt 158.8 kg
[2019-06-08 16:16] LABS: BASOPHILS ABSOLUTE AUTO 0.07 K/mm3 (0.00-0.23); BASOPHILS PERCENT AUTO 1 % (0-2); EOSINOPHILS ABSOLUTE AUTO 0.08 K/mm3 (0.00-0.68); EOSINOPHILS PERCENT AUTO 1 % (0-6); Hematocrit 41.9 % (33.0-51.0); Hemoglobin 13.6 g/dL (11.5-16.0); IMMATURE GRAN ABSOLUTE AUTO 0.01 K/mm3 (0.00-0.10); IMMATURE GRAN PERCENT AUTO 0 % (0-1); LYMPHOCYTES ABSOLUTE AUTO 2.01 K/mm3 (0.84-5.20); LYMPHOCYTES PERCENT AUTO 34 % (21-46); MONOCYTES ABSOLUTE AUTO 0.33 K/mm3 (0.16-1.47); MONOCYTES PERCENT AUTO 6 % (4-13); Mean Corpuscular HGB 31.6 pg (26.0-34.0); Mean Corpuscular HGB Conc 32.5 g/dL (31.5-36.5); Mean Corpuscular Volume 97 fL (80-100); Mean Platelet Volume 9.7 fL (9.1-12.4); NEUTROPHILS ABSOLUTE AUTO 3.35 K/mm3 (1.96-9.15); NEUTROPHILS PERCENT AUTO 57 % (41-73); Platelet Count 239 K/mm3 (150-400); RDW Coefficient Variation 12.5 % (11.7-14.2); RDW Standard Deviation 45.1 fL (35.1-46.3); Red Blood Cell Count 4.31 M/mm3 (3.80-5.20); White Blood Cell Count 5.85 K/mm3 (4.00-11.30)
[2019-06-08 16:38] LABS: Alanine Aminotransfer (ALT/SGP 22 U/L (12-78); Albumin, Blood 3.3 g/dL (3.4-5.0); Albumin/Globulin Ratio 0.7 (0.8-1.8); Alk Phos 91 U/L (50-136); Anion Gap 4 mmol/L (6-16); Aspartate Aminotrans (AST/SGOT 15 U/L (12-37); Bilirubin, Total 0.6 mg/dL (0.1-1.0); Blood Urea Nitrogen 17 mg/dL (8-24); Bun/Creatinine Ratio 25.7 (12.0-20.0); CO2, Blood 30 mmol/L (21-32); Calcium, Blood 9.2 mg/dL (8.5-10.1); Chloride, Blood 105 mmol/L (98-108); Creatinine, Blood 0.66 mg/dL (0.40-1.00); Globulin, Blood 4.7 g/dL (2.2-4.0); Glomerular Filtration Rate >60 (60-); Glucose, Blood 110 mg/dL (70-99); Potassium, Blood 3.8 mmol/L (3.5-5.5); Sodium, Blood 139 mmol/L (136-145)
== END 2019-06-08 17:15 | disposition home or self-care (01) ==
LOC: ER 15:10
PROVIDERS: Nurse Practitioner
DX: S86.912A Strain of unspecified muscle(s) and tendon(s) at lower leg level, left leg, initial encounter (principal); I10 Essential (primary) hypertension; I25.2 Old myocardial infarction; E11.9 Type 2 diabetes mellitus without complications; E03.9 Hypothyroidism, unspecified; Z87.891 Personal history of nicotine dependence; Z88.0 Allergy status to penicillin; Z88.8 Allergy status to other drugs, medicaments and biological substances; Z91.048 Other nonmedicinal substance allergy status; Z79.82 Long term (current) use of aspirin; Z79.84 Long term (current) use of oral hypoglycemic drugs; Z79.899 Other long term (current) drug therapy; X58.XXXA Exposure to other specified factors, initial encounter
CPT/HCPCS: 36415; 80053; 85025; 93971; 99283-25